=== PATIENT | female | born 1950 | race Caucasian/White ===

== ENCOUNTER → 2019-06-04 09:05 | Outpatient (BNVA) | payer MEDICARE, OTHER, SELFPAY | PROVIDERS: Family Provider Family Medicine; PCP Family Medicine; Visit Provider Specialist | DX: R52 Pain, unspecified (principal); G52.1 Disorders of glossopharyngeal nerve; G40.309 Generalized idiopathic epilepsy and epileptic syndromes, not intractable, without status epilepticus; M16.0 Bilateral primary osteoarthritis of hip | CPT/HCPCS: 99213 ==

== ENCOUNTER → 2020-06-04 08:49 | Outpatient (BNVA) | payer MEDICARE, SELFPAY | PROVIDERS: Family Provider Family Medicine; PCP Family Medicine; Visit Provider Specialist | DX: G52.1 Disorders of glossopharyngeal nerve (principal); G40.309 Generalized idiopathic epilepsy and epileptic syndromes, not intractable, without status epilepticus | CPT/HCPCS: 99213 ==

== ENCOUNTER 2020-07-09 15:24 | Outpatient (CLI) | payer MEDICARE, SELFPAY ==
--- NOTE | 2020-07-09 15:40 | XR_ITS ---
WS: [id number] Right leg including the tibia and fibula, AP and lateral views, 07/09/2020 Clinical Data: FALL, PAIN RIGHT LOWER LEG Comparison: None. Findings: No fractures or dislocations are seen. The tibia and fibula are intact. The soft tissues are normal. The visualized right ankle and right knee show no significant abnormalities. XR/XR tibia fibula RT 2V [id number] Impression: Negative for right leg fracture.
== END 2020-07-09 15:25 | disposition home or self-care (01) ==
PROVIDERS: PCP Family Medicine; Visit Provider Nurse Practitioner Family
DX: M79.661 Pain in right lower leg (principal); W19.XXXA Unspecified fall, initial encounter
CPT/HCPCS: 73590

== ENCOUNTER 2020-07-18 07:59 | Outpatient (CLI) | payer MEDICARE, SELFPAY ==
--- NOTE | 2020-07-18 08:06 | MM_ITS ---
WS: [id number] Bilateral screening digital mammogram, 07/18/2020 Clinical Data: SCREENING Comparison: 03/14/2019, 03/08/2018, 01/31/2017, 05/17/2014, 05/15/2013, 09/03/2008. Findings: The breast parenchymal pattern shows fibroglandular tissue No spiculated masses or clustered calcific ations are seen. There are no secondary signs of carcinoma. There is a mole marker on the left breast . There are lymph nodes in both axilla. MM/[place] [id number] Impression: 1. Negative bilateral mammogram unchanged. 2. Recommend annual screening mammograms. BIRADS: 1-Negative FOLLOW UP: 1 Year Follow-up The CAD cargo checker was used.
== END 2020-07-18 08:00 | disposition home or self-care (01) ==
LOC: RADSHAW 08:01
PROVIDERS: PCP Family Medicine; Visit Provider Family Medicine
DX: Z12.31 Encounter for screening mammogram for malignant neoplasm of breast (principal)
CPT/HCPCS: 77067

== ENCOUNTER 2020-12-09 13:36 | Emergency (ER) | payer MEDICARE, SELFPAY ==
[2020-12-09 14:01] VITALS: BP 183/94; PULSE 80; RESP 19; TEMP 37.1; O2SAT 97
--- NOTE | 2020-12-09 16:03 | W.ED.FALL ---
Documented by User: Alba Lopez 12/09/20 16:58 HPI - Fall General: Chief Complaint: Fall Stated Complaint: Fall, Neck pain Time Seen by Provider: 12/09/20 15:52 History of Present Illness: HPI Narrative: pt fell 5 days ago, stiff neck MD complaint: fall Fall from: standing Loss of consciousness: None Associated symptoms-after fall: Reports headache(s) and neck pain Review of Systems General: Reports: 10 or more systems reviewed and unremarkable except in HPI and below Eyes: Denies: change in vision Musc: Reports: neck pain Neuro: Reports: headache(s) PFSH ED PFSH: Family History Mother Cancer Social History Smoking and tobacco status: never smoked Physical Exam Const: COMMON NORMALS: no acute distress, patient oriented x3, no limitations and alert GENERAL APPEARANCE: cooperative and comfortable ORIENTATION/CONSCIOUSNESS: Yes awake, Yes oriented to person, Yes oriented to place and Yes oriented to time HENMT: COMMON NORMALS: normocephalic, atraumatic, external ears normal, EAC's normal, TM's normal bilaterally and Normal external nose present HEAD & SCALP: normal to inspection, normocephalic and atraumatic FACE & SINUS: normal facial exam, sinuses nontender and face symmetric NOSE: Normal external nose present, Normal nares present and No nasal discharge present EXTERNAL EAR: Yes external ears normal EXTERNAL AUDITORY CANAL: EAC's normal TYMPANIC MEMBRANE: TM's normal bilaterally MOUTH: Normal oral and palatal mucosa present, lip normal and tongue normal THROAT: posterior oropharynx normal, tonsils normal and uvula midline Eye: COMMON NORMALS: Equal, round and reactive pupils present, EOMs intact bilaterally and conjunctivae normal GENERAL EYE: appearance normal, both eyes and all related structures and normal light reflex EYELID: eyelids normal CONJUNCTIVA: Yes conjunctivae normal PUPIL: Yes Equal, round and reactive pupils present EOM: Yes EOM abnormal DIRECT OPHTHALMOSCOPY: Yes normal light reflex Neck/C-Spine: COMMON NORMALS: full ROM, no lymphadenopathy, supple, no meningeal signs, no JVD and Thyroid normal GENERAL: Yes normal visual inspection THYROID: Thyroid normal CERVICAL SPINE: Yes normal cervical lordosis and Yes cervical ROM abnormal rotation to the left decreased Lymph: LYMPHATIC: no lymphadenopathy noted Chest: COMMONS NORMALS: normal inspection of the chest and normal palpation of entire chest wall Resp: COMMON NORMALS: normal respiratory effort, No retractions and clear to auscultation bilaterally AUSCULTATION: clear to auscultation bilaterally Cardio: COMMON NORMALS: no JVD, regular rate, regular rhythm, S1 normal heart sound present, S2 normal heart sound present, No gallops present (Cardio), No clicks present (Cardio), No murmurs present (Cardio), No rub (Cardio) and Peripheral pulses 2+ throughout RATE: regular rate RHYTHM: regular rhythm HEART SOUNDS: S1 normal heart sound present and S2 normal heart sound present PERIPHERAL PULSES: Peripheral pulses 2+ throughout GI: COMMON NORMALS: Normal to inspection, nondistended, normoactive bowel sounds present, Soft to palpation, non-tender and no masses PALPATION: Yes Soft to palpation : COMMON NORMALS: Yes no CVA tenderness and Yes normal external appearance BLADDER/KIDNEY EXAM: Yes no CVA tenderness Back/Pelvis: COMMON NORMALS: no CVA tenderness, thoracic and lumbar spine normal to inspection, no thoracic nor lumbar tenderness and thoraco-lumbar ROM normal Extremity: COMMON NORMALS: normal to inspection, full ROM, capillary refill normal, no joint enlargement, no clubbing, cyanosis or edema, no calf tenderness and no pedal edema GENERAL: Yes normal exam except as noted Neuro: COMMON NORMALS: patient oriented x3, moves all extremities, no focal motor deficits, no sensory deficits noted and gait normal SENSORIUM/ORIENTATION: Yes alert, Yes oriented to person, Yes oriented to place and Yes oriented to time MENINGEAL SIGNS: Yes no meningeal signs Psych: COMMON NORMALS: mental status grossly normal, Normal thought process present, cooperative, normal affect, speech normal and activity/motor behavior normal SPEECH: Yes normal speech THOUGHT PROCESS: Normal thought process present Skin: COMMON NORMALS: no rashes or lesions noted, no wounds and turgor normal GENERAL SKIN EXAM: no rashes or lesions noted and turgor normal Course ED course: Pt presents to ER with complaints of neck pain after tripping over her chickens last . CT head and neck ordered to rule out any acute findings. Muscle relaxer and IM toradol administered. Awaiting results to imaging. Vital Signs: Vital signs: Vital Signs Temperature 98.7 F 12/09/20 18:07 Pulse Rate 69 12/09/20 18:07 Respiratory Rate 16 12/09/20 18:07 Blood Pressure 175/75 12/09/20 18:07 Pulse Oximetry 95 12/09/20 18:07 Discharge Plan Discharge Patient Disposition: Home Clinical Impression: Cervical muscle strain Qualifiers: Encounter type: initial encounter Qualified Code(s): S16.1XXA - Strain of muscle, fascia and tendon at neck level, initial encounter Condition: Stable Prescriptions: New cyclobenzaprine 5 mg tablet 5 mg PO BID PRN (Reason: muscle spasm) Qty: 15 RF: 0 No Action alprazolam 0.25 mg tablet 0.125 mg PO TID RF: 0 omeprazole 40 mg capsule,delayed release(DR/EC) 40 mg PO DAILY RF: 0 fluticasone furoate 50 mcg/actuation blister with device INHALATION RF: 0 cyanocobalamin (vitamin B-12) 1,000 mcg capsule 1,000 mcg PO DAILY RF: 0 (DME) DME: [facility] See Rx Instructions .ROUTE .MEDSUPPLY Qty: 1 RF: 0 ascorbate calcium (vitamin C) 500 mg tablet 500 mg PO DAILY RF: 0 pyridoxine (vitamin B6) 50 mg tablet 25 mg PO DAILY RF: 0 lamotrigine [Lamictal] 150 mg tablet 150 mg PO BID 90 Days Qty: 180 RF: 2 Discharge Orders: Discharge ED (Routine); Ordered 12/09/20 Ordered By: Wallace Javier Referrals: Angelica Gonsales MD [Primary Care Provider] - Discharge Diet: Regular Discharge Activity: Increase activity as tolerated Patient Instructions: Cervical Spine Strain (ED), Muscle Strain (ED) Activity Restrictions/Additional Instructions: Follow-up with medical provider as directed in 5 to 7 days for reevaluation. Take medications as prescribed. Apply cold pack on neck and stretch neck muscles out daily. Return to the ER or your medical provider if condition worsens. Please read and understand discharge instructions. Thank you for choosing [facility] for your healthcare needs today. Please realize this is an emergency room and that we are providing you with a medical screening exam and this may not be complete and all inclusive of all the testing and or work up that you may need to determine your ailment or severity of your illness. It is very important that you follow up as instructed or that you return to the Emergency Department should you have concerns or if your condition changes or worsens in any way. Sign Out Sign Out Data: Patient Sign Out occurred on 12/09/20 at 17:17. Patient's care was discussed, and care was transferred from to DUTCH Mitchell. Coding Level of Care Code ED Mirror Silverer for Chg Fwd Exam Comprehensive Documented by User: DUTCH Mitchell 12/10/20 00:48 HPI - Fall General: Chief Complaint: Fall Stated Complaint: Fall, Neck pain Time Seen by Provider: 12/09/20 15:52 PFSH ED PFSH: Family History Mother Cancer Social History Smoking and tobacco status: never smoked Course Vital Signs: Vital signs: Vital Signs Temperature 98.7 F 12/09/20 18:07 Pulse Rate 69 12/09/20 18:07 Respiratory Rate 16 12/09/20 18:07 Blood Pressure 175/75 12/09/20 18:07 Pulse Oximetry 95 12/09/20 18:07 MDM - Fall MDM Narrative: Medical decision making narrative: Elen Queen nurse practitioner performed the initial history physical exam and ordered imaging. When I took over patient care we were waiting on CT image results. pt presents to ER with complaints of neck pain after tripping over her chickens last . CT head and neck ordered to rule out any acute findings. Muscle relaxer and IM toradol administered. CT of head and CT of cervical spine showed no acute findings or fractures. Patient diagnosed with cervical muscle strain and discharged home with a prescription for muscle relaxers to help with symptoms. She is told to follow-up with her PCP in 7 to 10 days reevaluation. Return to ED precautions given. Patient understood and agree with plan. Imaging Data^: Other CT: Attestation: I personally reviewed and interpreted this imaging study as follows: Radiologist's impression: [address] [address] [address] Scan Report Signed Patient: Savannah Jung Unit #: [id number] : 1950 Age/Sex: 70 / F ADM Date: 12/09/20 Loc: ER Room/Bed: Attending Dr: Ordering Provider/Ordering MD: Alba Lopez NP Date of Service: 12/09/20 Procedure(s): CT cervical spin wo con* [id number] Accession Number(s): [id number] Report Number: [id number] PROCEDURE INFORMATION: Exam: CT Cervical Spine Without Contrast Exam date and time: 12/09/2020 4:04 PM Age: 70 years old Clinical indication: Injury or trauma; Fall; Blunt trauma; Prior surgery; Additional info: Fall on . TECHNIQUE: Imaging protocol: Computed tomography images of the cervical spine without contrast. Radiation optimization: All CT scans at this facility use at least one of these dose optimization techniques: automated exposure control; mA and/or kV adjustment per patient size (includes targeted exams where dose is matched to clinical indication); or iterative reconstruction. COMPARISON: CT neck w con* [id number] 07/26/2014 3:55 PM RADIATION DOSE METRICS: Total DLP (mGy-cm): 776.7 FINDINGS: Vertebrae: No acute cervical spine fractures. No malalignment. C4 through C7 ACDF surgical changes without complication.The cervical spine demonstrates moderate degenerative changes at multiple levels. Soft tissues: Unremarkable. Lungs: Lung apices are normal. CT/CT cervical spin wo con* [id number] IMPRESSION: Negative for acute cervical spine injury. Radiation Dose CTDIVOL = (mGy): DLP = 776.7 (mGy-cm) Dictated By: Luis E Arias Signed By: Luis E Arias Signed Date/Time: 12/09/201654 DD/ 52 CT Head: Attestation: I personally reviewed and interpreted this imaging study as follows: Radiologist's impression: [address] [place] [address] CT Scan Report Signed Patient: Savannah Jung Unit #: [id number] : 1950 Age/Sex: 70 / F ADM Date: 12/09/20 Loc: ER Room/Bed: Attending Dr: Ordering Provider/Ordering MD: Alba Lopez NP Date of Service: 12/09/20 Procedure(s): CT head wo con* [id number] Accession Number(s): [id number] Report Number: [id number] PROCEDURE INFORMATION: Exam: CT Head Without Contrast Exam date and time: 12/09/2020 4:04 PM Age: 70 years old Clinical indication: Injury or trauma; Fall; Blunt trauma (contusions or hematomas); Without loss of consciousness; Additional info: Fall on . Near syncope post fall. MERLOS TECHNIQUE: Imaging protocol: Computed tomography of the head without contrast. Radiation optimization: All CT scans at this facility use at least one of these dose optimization techniques: automated exposure control; mA and/or kV adjustment per patient size (includes targeted exams where dose is matched to clinical indication); or iterative reconstruction. COMPARISON: MRI Head w/wo* [id number] 12/16/2014 9:39 AM RADIATION DOSE METRICS: Total DLP (mGy-cm): 846.82 FINDINGS: Brain: Normal. No hemorrhage. Unremarkable white matter. No mass effect. Cerebral ventricles: No ventriculomegaly. Paranasal sinuses: Visualized sinuses are unremarkable. No fluid levels. Mastoid air cells: Visualized mastoid air cells are well aerated. Bones/joints: Unremarkable. No acute fracture. Soft tissues: Unremarkable. CT/CT head wo con* [id number] IMPRESSION: No acute intracranial abnormality. Radiation Dose CTDIVOL = (mGy): DLP = 846.82 (mGy-cm) Dictated By: Luis E Arias Signed By: Luis E Arias Signed Date/Time: 12/09/201652 DD/ 51 Discharge Plan Discharge Patient Disposition: Home Clinical Impression: Cervical muscle strain Qualifiers: Encounter type: initial encounter Qualified Code(s): S16.1XXA - Strain of muscle, fascia and tendon at neck level, initial encounter Condition: Stable Prescriptions: New cyclobenzaprine 5 mg tablet 5 mg PO BID PRN (Reason: muscle spasm) Qty: 15 RF: 0 No Action alprazolam 0.25 mg tablet 0.125 mg PO TID RF: 0 omeprazole 40 mg capsule,delayed release(DR/EC) 40 mg PO DAILY RF: 0 fluticasone furoate 50 mcg/actuation blister with device INHALATION RF: 0 cyanocobalamin (vitamin B-12) 1,000 mcg capsule 1,000 mcg PO DAILY RF: 0 (DME) DME: [facility] See Rx Instructions .ROUTE .MEDSUPPLY Qty: 1 RF: 0 ascorbate calcium (vitamin C) 500 mg tablet 500 mg PO DAILY RF: 0 pyridoxine (vitamin B6) 50 mg tablet 25 mg PO DAILY RF: 0 lamotrigine [Lamictal] 150 mg tablet 150 mg PO BID 90 Days Qty: 180 RF: 2 Discharge Orders: Discharge ED (Routine); Ordered 12/09/20 Ordered By: Wallace Javier Referrals: Angelica Gonsales MD [Primary Care Provider] - Discharge Diet: Regular Discharge Activity: Increase activity as tolerated Patient Instructions: Cervical Spine Strain (ED), Muscle Strain (ED) Activity Restrictions/Additional Instructions: Follow-up with medical provider as directed in 5 to 7 days for reevaluation. Take medications as prescribed. Apply cold pack on neck and stretch neck muscles out daily. Return to the ER or your medical provider if condition worsens. Please read and understand discharge instructions. Thank you for choosing [facility] for your healthcare needs today. Please realize this is an emergency room and that we are providing you with a medical screening exam and this may not be complete and all inclusive of all the testing and or work up that you may need to determine your ailment or severity of your illness. It is very important that you follow up as instructed or that you return to the Emergency Department should you have concerns or if your condition changes or worsens in any way. Sign Out Sign Out Data: Patient Sign Out occurred on 12/09/20 at 17:17. Patient's care was discussed, and care was transferred from to DUTCH Mitchell. Coding Level of Care Code ED Mirror Silverer for Mireya Fwd Exam Comprehensive
[2020-12-09 16:18] VITALS: BP 175/75; PULSE 69; RESP 16; O2SAT 95
[2020-12-09] MEDS: orphenadrine 30 mg/mL Inj 2 mL 60 MG IM (17:17)
[2020-12-09] MEDS: ketorolac 30 mg/mL INJ IM (17:17)
[2020-12-09 18:07] VITALS: BP 175/75; PULSE 69; RESP 16; TEMP 37.1; O2SAT 95
== END 2020-12-09 18:10 | disposition home or self-care (01) ==
PROVIDERS: Emergency Provider Physician Assistant; PCP Family Medicine
DX: S16.1XXA Strain of muscle, fascia and tendon at neck level, initial encounter (principal); W01.0XXA Fall on same level from slipping, tripping and stumbling without subsequent striking against object, initial encounter
CPT/HCPCS: 70450; 72125; 96372; 99283; J1885; J2360

== ENCOUNTER 2021-01-31 21:06 | Emergency (ER) | payer MEDICARE, SELFPAY ==
--- NOTE | 2021-01-31 21:14 | W.ED.SKABFB ---
HPI - Skin/Abscess/Foreign Bdy General: Chief complaint: Animal Bite Stated complaint: Spider Bite Time Seen by Provider: 01/31/21 21:14 History of Present Illness: HPI narrative: 70-year-old female comes in today with complaints of left thumb pain. Patient believes she had been bitten by a spider earlier today around 2:00 in afternoon. Patient comes in tonight due to the pain of the thumb and some nausea due to the pain. Patient appears well. Patient appears no acute distress. Review of Systems General: Reports: 10 or more systems reviewed and unremarkable except in HPI and below Skin/Breast: Reports: other (Probable insect bite left thumb) PFS ED PFSH: Family History Mother Cancer Social History Smoking and tobacco status: never smoked Physical Exam Const: COMMON NORMALS: no acute distress and patient oriented x3 GENERAL APPEARANCE: cooperative HENMT: COMMON NORMALS: normocephalic and Normal external nose present HEAD & SCALP: normal to inspection and normocephalic NOSE: Normal external nose present Eye: GENERAL EYE: appearance normal, both eyes and all related structures Neck/C-Spine: COMMON NORMALS: full ROM Chest: COMMONS NORMALS: normal inspection of the chest Resp: COMMON NORMALS: normal respiratory effort EFFORT & INSPECTION: Yes able to speak in complete sentences Cardio: COMMON NORMALS: regular rate and regular rhythm RATE: regular rate RHYTHM: regular rhythm GI: COMMON NORMALS: non-tender Extremity: COMMON NORMALS: normal to inspection Neuro: COMMON NORMALS: patient oriented x3 and moves all extremities Psych: COMMON NORMALS: mental status grossly normal and cooperative Skin: NARRATIVE SKIN EXAM: 4 mm area of ecchymosis noted to the ulnar side of the left thumb at the DIP joint. Patient has good range of motion of the thumb. Prompt capillary refill is noted. Small amount of swelling and redness is noted to the joint of the thumb. Course Vital Signs: Vital signs: Vital Signs Temperature 98.6 F 01/31/21 21:15 Pulse Rate 84 01/31/21 21:15 Respiratory Rate 18 01/31/21 21:15 Blood Pressure 174/65 01/31/21 21:15 Pulse Oximetry 95 01/31/21 21:15 MDM - Skin/Abscess/Foreign Bdy MDM Narrative: Medical decision making narrative: Patient comes in for probable insect bite to the left thumb. On exam patient has a lesion with some surrounding ecchymosis approximately 4 mm to the left ulnar side of the thumb at the DIP joint. Patient also has some mild redness approximately 1 cm surrounding the lesion. Patient has good range of motion of the thumb and prompt capillary refill. Differential diagnosis includes local reaction to insect bite, arthritis, cellulitis. No sign of significant inflammation suggesting arthritis or cellulitis at this time. Suspect patient probably was bit by a spider and is having a local reaction to the wound. We will go ahead and give her a dose of diphenhydramine IM and 10 mg of dexamethasone. Patient was also given 1 dose of hydrocodone and a Zofran to help with her pain and nausea. Patient will be continued with triamcinolone cream to help with the reaction from the venom of the spider. Patient was also given some hydrocodone for breakthrough pain but was encouraged to use Tylenol and ibuprofen otherwise. Patient denied any history of diabetes and I recommended follow-up in 3 days with primary care for recheck. Patient reported understanding and agreed to plan. Discharge Plan Discharge Patient Disposition: Home Clinical Impression: Insect bite Qualifiers: Encounter type: initial encounter Site of insect bite: hand Laterality: left Qualified Code(s): S60.562A - Insect bite (nonvenomous) of left hand, initial encounter Condition: Stable Prescriptions: New triamcinolone acetonide 0.1 % cream 1 applic topical BID Qty: 30 RF: 0 hydrocodone-acetaminophen 5-325 mg tablet 1 tab PO Q8H PRN (Reason: pain (scale score 7-10)) Qty: 7 RF: 0 No Action alprazolam 0.25 mg tablet 0.125 mg PO TID RF: 0 omeprazole 40 mg capsule,delayed release(DR/EC) 40 mg PO DAILY RF: 0 fluticasone furoate 50 mcg/actuation blister with device INHALATION RF: 0 cyanocobalamin (vitamin B-12) 1,000 mcg capsule 1,000 mcg PO DAILY RF: 0 (DME) DME: [facility] See Rx Instructions .ROUTE .MEDSUPPLY Qty: 1 RF: 0 ascorbate calcium (vitamin C) 500 mg tablet 500 mg PO DAILY RF: 0 pyridoxine (vitamin B6) 50 mg tablet 25 mg PO DAILY RF: 0 lamotrigine 150 mg tablet See Rx Instructions .ROUTE .COMPLEX Qty: 60 RF: 11 cyclobenzaprine 5 mg tablet 5 mg PO BID PRN (Reason: muscle spasm) Qty: 15 RF: 0 Discharge Orders: Discharge ED (Routine); Ordered 01/31/21 Ordered By: Bran Tang Referrals: Angelica Gonsales MD [Primary Care Provider] - Discharge Diet: Usual diet Discharge Activity: Increase activity as tolerated Patient Instructions: Insect Bite or Sting (ED), Opioid Safety Activity Restrictions/Additional Instructions: Use steroid cream to the wound twice a day for the next 5 to 7 days. Use Benadryl as needed for itching. Use acetaminophen or ibuprofen to control pain. Use hydrocodone for severe pain. Follow-up with primary care in 3 days for recheck. Return to the ER for new concerns or worsening symptoms. Coding Level of Care Code ED Manufacturing Plant Manager for Mireya Alves
[2021-01-31 21:15] VITALS: BP 174/65; PULSE 84; RESP 18; TEMP 37; O2SAT 95
[2021-01-31] MEDS: ondansetron 4 MG Tablet PO (22:02)
[2021-01-31] MEDS: HYDROcodone-acetaminophen 5-325 mg Tablet 1 TAB PO (22:02)
[2021-01-31] MEDS: diphenhydrAMINE 50 mg/mL SDV 1mL 25 MG IM (22:03)
[2021-01-31] MEDS: dexamethasone 10 mg/mL INJ IM (22:04)
[2021-01-31 22:07] VITALS: BP 158/70; PULSE 65; RESP 17; O2SAT 96
== END 2021-01-31 22:09 | disposition home or self-care (01) ==
PROVIDERS: Emergency Provider Nurse Practitioner Family; PCP Family Medicine
DX: S60.362A Insect bite (nonvenomous) of left thumb, initial encounter (principal); W57.XXXA Bitten or stung by nonvenomous insect and other nonvenomous arthropods, initial encounter
CPT/HCPCS: 96372; 99283; J1100; J1200; Q0162

== ENCOUNTER 2021-05-05 12:18 | Outpatient (CLI) | payer MEDICARE, SELFPAY ==
--- NOTE | 2021-05-05 12:29 | XR_ITS ---
WS: [id number] Thoracic spine, AP and lateral views, 05/05/2021 Clinical Data: DORSALGIA Comparison: None. Findings: No compression fractures are seen. The disc heights are normal. There is osteoarthritic spurring of all the thoracic vertebral bodies. The paravertebral regions are unremarkable. There is an anterior cervical disc fusion. XR/XR thoracic spine 2V [id number] Impression: Moderate osteoarthritis of the thoracic vertebral bodies.
== END 2021-05-05 12:19 | disposition home or self-care (01) ==
LOC: RAD 12:23
PROVIDERS: PCP Family Medicine; Visit Provider Family Medicine
DX: M47.814 Spondylosis without myelopathy or radiculopathy, thoracic region (principal)
CPT/HCPCS: 72070

== ENCOUNTER → 2021-06-03 08:54 | Outpatient (BNVA) | payer MEDICARE, SELFPAY | PROVIDERS: PCP Family Medicine; Visit Provider Specialist | DX: G40.309 Generalized idiopathic epilepsy and epileptic syndromes, not intractable, without status epilepticus (principal); G52.1 Disorders of glossopharyngeal nerve | CPT/HCPCS: 99213; 99214 ==

== ENCOUNTER 2021-09-09 12:45 | Outpatient (CLI) | payer MEDICARE, SELFPAY ==
--- NOTE | 2021-09-09 13:14 | MM_ITS ---
WS: [id number] BILATERAL 3D TOMOSYNTHESIS DIGITAL SCREENING MAMMOGRAPHY WITH CAD CLINICAL INFORMATION: SCREENING HISTORY: Screening mammogram. No current complaints. COMPARISON: July 18, 2020 TECHNIQUE: Bilateral CC and MLO views. FINDINGS: Scattered fibroglandular densities bilaterally. Punctate and lucent centered calcifications. Vascular calcification. No suspicious focal mass, asymmetry, calcifications, or architectural distortion. No evidence of malignancy. MM/[place] [id number] IMPRESSION: BI-RADS: 2-Benign FOLLOW UP: 1 Year Follow-up Recommend return to annual screening mammography.
== END 2021-09-09 12:46 | disposition home or self-care (01) ==
LOC: RAD 12:47
PROVIDERS: PCP Family Medicine; Visit Provider Family Medicine
DX: Z12.31 Encounter for screening mammogram for malignant neoplasm of breast (principal)
CPT/HCPCS: 77063; 77067

== ENCOUNTER 2022-03-15 14:11 | Outpatient (CLI) | payer MEDICARE, SELFPAY ==
--- NOTE | 2022-03-15 14:34 | XR_ITS ---
WS: [id number] Exam: XR shoulder LT min 2V* [id number] Date/Time of Exam: 03/15/2022 2:39 PM Reason For Exam: L SHOULDER PAIN/?CLAVICLE FX/FALL AT HOME No fracture or dislocation. Degenerative change of the glenohumeral joint and AC joint. Sclerosis and subcortical cyst formation in the greater tuberosity of the humerus. Normal soft tissues. Fusion garrett dware partially visualized in the lower C-spine. XR/XR shoulder LT min 2V* [id number] IMPRESSION: 1. Moderate degenerative changes of the left shoulder. No fracture or dislocati on.
== END 2022-03-15 14:12 | disposition home or self-care (01) ==
PROVIDERS: PCP Family Medicine; Visit Provider Family Medicine
DX: M25.512 Pain in left shoulder (principal); M19.012 Primary osteoarthritis, left shoulder
CPT/HCPCS: 73030

== ENCOUNTER → 2022-07-09 14:04 | Outpatient (BNVA) | payer MEDICARE, SELFPAY | PROVIDERS: PCP Family Medicine; Visit Provider Specialist | DX: G40.309 Generalized idiopathic epilepsy and epileptic syndromes, not intractable, without status epilepticus (principal); M54.9 Dorsalgia, unspecified; G52.1 Disorders of glossopharyngeal nerve | CPT/HCPCS: 99214 ==

== ENCOUNTER 2022-08-11 09:44 | Outpatient (CLI) | payer MEDICARE, SELFPAY ==
--- NOTE | 2022-08-11 10:06 | MR_ITS ---
WS: [id number] MRI CERVICAL SPINE NONCONTRAST HISTORY: NECK PAIN COMPARISON: Radiographs 07/14/2022. Technique: Multiplanar, multisequence noncontrast imaging of the cervical spine. Anterior cervical fusion extends from C4 through C7. Interbody spacers with fusion across the disc sp acers at C4-5, C5-6 and C6-7. Signal within the cervical cord is normal. Visualized posterior fossa is unremarkable. Craniocervical junction, C1 and C2 relationship, odontoid process and soft tissues are normal. C2-C3: Very small central disc protrusion. No stenosis. C3-C4: Moderate osteophytic ridging encroaching upon the ventral thecal sac and narrowing the foramin a. There is also ligamentum flavum and facet arthritis contributing to the moderate to severe stenosi s. Small central disc protrusion. The above factors are causing at least moderate to severe central a nd RIGHT foraminal stenosis. Moderate LEFT foraminal stenosis. C4-C5: Very mild bilateral foraminal narrowing. C5-C6: Foramina difficult to visualize. There is mild to moderate RIGHT foraminal stenosis. C6-C7: Mild bilateral foraminal narrowing. No central stenosis. C7-T1: Central disc protrusion with mild osteophytic ridging. Disc contacts the ventral cervical cord . There is moderate central and bilateral foraminal stenosis. Additional mild degenerative disc disease at T2-3 and T3-4. MR/MR cervical spin wo con* [id number] IMPRESSION: 1. Status post anterior cervical fusion with interbody spacers from C4 through C7. 2. Moderate to severe central and RIGHT foraminal stenosis at C3-4 with modera te LEFT foraminal stenosis. Stenosis is due to combination of osteophytic ridgi ng, facet and disc disease. Predominantly osseous stenosis. 3. Very small central disc protrusion at C2-3. 4. Multiple moderate RIGHT foraminal stenosis at C5-6. 5. Moderate central and bilateral foraminal stenosis at C7-T1. There is a smal l central disc protrusion with osteophytic ridging.
== END 2022-08-11 09:45 | disposition home or self-care (01) ==
PROVIDERS: PCP Family Medicine; Visit Provider Family Medicine
DX: M48.02 Spinal stenosis, cervical region (principal); M50.21 Other cervical disc displacement, high cervical region; Z98.1 Arthrodesis status
CPT/HCPCS: 72141

== ENCOUNTER → 2022-09-03 09:45 | Outpatient (BNVA) | payer MEDICARE, SELFPAY | PROVIDERS: PCP Family Medicine; Visit Provider Internal Medicine | DX: M25.50 Pain in unspecified joint (principal); M54.2 Cervicalgia; M54.9 Dorsalgia, unspecified; Z11.1 Encounter for screening for respiratory tuberculosis; Z11.59 Encounter for screening for other viral diseases | CPT/HCPCS: 99204 ==

== ENCOUNTER 2022-09-03 12:46 | Outpatient (CLI) | payer MEDICARE, SELFPAY ==
--- NOTE | 2022-09-03 | XR_ITS ---
WS: [id number] XR hand RT 2V [id number] REASON FOR EXAM: PAIN IN UNSPECIFIED JOINT FINDINGS: No fracture or focal bone lesion. Moderate narrowing of the joint space with moderate subchondral sclerosis and osteophytosis in the DI P joints of the thumb and fingers. Similar but milder arthropathic changes in the PIP joints. Similar more significant arthropathic change in the MP joint of the thumb. Similar but more severe ar thropathy in the carpal metacarpal joint with significant fragmentation of the carpal bone and sublux ation of the metacarpal. Moderate narrowing of the joint space with moderate subchondral sclerosis in the MP joints of the sec ond through the fifth fingers. 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
--- NOTE | 2022-09-03 | XR_ITS ---
WS: [id number] XR hand LT 2V [id number] REASON FOR EXAM: PAIN IN UNSPECIFIED JOINT FINDINGS: No fracture or focal bone lesion. Moderate joint space narrowing with moderate subchondral sclerosis and osteophytosis of the DIP joint s. Similar, somewhat milder, arthropathic change in the PIP joints of the second through the fifth finge rs. Similar but more severe arthropathic change in the metacarpal phalangeal joint of the thumb and the c arpal metacarpal joint of the thumb with fragmentation of the carpal bone and subluxation of the meta carpal. Moderate narrowing of the MCP joints of the second through the fifth fingers with moderate subchondra l sclerosis. XR/XR hand LT 2V [id number] IMPRESSION: Osteoarthritis of the left hand as above.
== END 2022-09-03 12:47 | disposition home or self-care (01) ==
LOC: RADOUTREAD 12:47
PROVIDERS: PCP Family Medicine; Visit Provider Internal Medicine
DX: M79.642 Pain in left hand (principal); M79.641 Pain in right hand

== ENCOUNTER 2022-09-29 11:36 | Outpatient (CLI) | payer MEDICARE, SELFPAY ==
--- NOTE | 2022-09-29 11:46 | MM_ITS ---
WS: [id number] VIEWS: MLO and CC views both breasts. 3D digital tomosynthesis is also included in this exam. Comparison made with prior exam of 05/17/2014, 01/31/2017, 03/08/2018, 03/14/2019, 07/18/2020, 09/09/2021. . Findings: There was no sign of mass, architectural distortion or suspicious calcification in either breast. Th ere are areas of scattered fibroglandular density MM/[place] [id number] Impression: BI-RADS: 2 benign finding FOLLOW-UP: 1 Year Follow-up This mammogram was also analyzed by the Computer Aided Detection System R2 Imag e Knockout Man.
== END 2022-09-29 11:37 | disposition home or self-care (01) ==
LOC: RAD 11:42
PROVIDERS: PCP Family Medicine; Visit Provider Family Medicine
DX: Z12.11 Encounter for screening for malignant neoplasm of colon (principal)
CPT/HCPCS: 77063; 77067

== ENCOUNTER → 2022-11-12 11:07 | Outpatient (BNVA) | payer MEDICARE, SELFPAY | PROVIDERS: PCP Family Medicine; Visit Provider Internal Medicine | DX: M54.2 Cervicalgia; M25.50 Pain in unspecified joint | CPT/HCPCS: 99213 ==

== ENCOUNTER → 2022-12-27 09:00 | Outpatient (BNVA) | payer MEDICARE, SELFPAY | PROVIDERS: PCP Family Medicine; Referring Provider Internal Medicine; Visit Provider Anesthesiology Pain Medicine | DX: M54.16 Radiculopathy, lumbar region; M54.2 Cervicalgia | CPT/HCPCS: 99205 ==

== ENCOUNTER → 2023-02-09 12:54 | Outpatient (BNVA) | payer MEDICARE, SELFPAY | PROVIDERS: PCP Family Medicine; Visit Provider Nurse Practitioner Family | DX: D48.5 Neoplasm of uncertain behavior of skin (principal); L57.0 Actinic keratosis; L82.1 Other seborrheic keratosis; D22.5 Melanocytic nevi of trunk; L57.8 Other skin changes due to chronic exposure to nonionizing radiation; L81.4 Other melanin hyperpigmentation; L85.3 Xerosis cutis | CPT/HCPCS: 11102; 17000; 99203 ==

== ENCOUNTER → 2023-02-16 10:58 | Outpatient (BNVA) | payer MEDICARE, SELFPAY | PROVIDERS: PCP Family Medicine; Visit Provider Dermatology | DX: L57.8 Other skin changes due to chronic exposure to nonionizing radiation (principal); D48.5 Neoplasm of uncertain behavior of skin; L57.0 Actinic keratosis | CPT/HCPCS: 11102; 17000; 99214 ==

== ENCOUNTER → 2023-02-24 08:24 | Outpatient (BNVA) | payer MEDICARE, SELFPAY | PROVIDERS: PCP Family Medicine; Visit Provider Dermatology | DX: L57.0 Actinic keratosis (principal) | CPT/HCPCS: 96574 ==

== ENCOUNTER → 2023-03-14 09:12 | Outpatient (BNVA) | payer MEDICARE, SELFPAY | PROVIDERS: PCP Family Medicine; Visit Provider Dermatology | DX: C44.329 Squamous cell carcinoma of skin of other parts of face (principal); D37.01 Neoplasm of uncertain behavior of lip | CPT/HCPCS: 14040; 17311; 40490 ==

== ENCOUNTER → 2023-03-28 10:00 | Outpatient (BNVA) | payer MEDICARE, SELFPAY | PROVIDERS: PCP Family Medicine; Visit Provider Dermatology | DX: Z48.02 Encounter for removal of sutures (principal) | CPT/HCPCS: 99212 ==

== ENCOUNTER → 2023-07-05 12:24 | Outpatient (BNVA) | payer MEDICARE, SELFPAY | PROVIDERS: PCP Family Medicine; Visit Provider Specialist | DX: G52.1 Disorders of glossopharyngeal nerve (principal); G40.309 Generalized idiopathic epilepsy and epileptic syndromes, not intractable, without status epilepticus | CPT/HCPCS: 99213 ==

== ENCOUNTER → 2023-07-27 13:36 | Outpatient (BNVA) | payer MEDICARE, SELFPAY | PROVIDERS: PCP Family Medicine; Visit Provider Dermatology | DX: L57.0 Actinic keratosis (principal); L82.0 Inflamed seborrheic keratosis; L57.8 Other skin changes due to chronic exposure to nonionizing radiation; Z85.828 Personal history of other malignant neoplasm of skin | CPT/HCPCS: 17000; 17110; 99213 ==

== ENCOUNTER 2023-10-05 11:09 | Outpatient (CLI) | payer MEDICARE, SELFPAY ==
--- NOTE | 2023-10-05 11:14 | MM_ITS ---
WS: [id number] BILATERAL SCREENING DIGITAL TOMOSYNTHESIS MAMMOGRAM WITH CAD HISTORY: SCREENING COMPARISON: 09/29/2022, 09/09/2021 Bilateral CC and MLO views with tomosynthesis and synthetic mammography submitted. Computer aided det ection analyzed. Breast composition: There are scattered areas of fibroglandular density. No suspicious masses, microc alcifications or architectural distortion. Benign calcifications in each breast. MM/[place] [id number] IMPRESSION: BI-RADS: 2-Benign FOLLOW UP: 1 Year Follow-up
== END 2023-10-05 11:10 | disposition home or self-care (01) ==
LOC: RAD 11:09
PROVIDERS: PCP Family Medicine; Visit Provider Family Medicine
DX: Z12.31 Encounter for screening mammogram for malignant neoplasm of breast (principal); R92.323 Mammographic fibroglandular density, bilateral breasts; R92.1 Mammographic calcification found on diagnostic imaging of breast
CPT/HCPCS: 77063; 77067

== ENCOUNTER → 2023-10-18 09:44 | Outpatient (CLI) | payer MEDICARE, SELFPAY ==
--- NOTE | 2023-10-18 10:07 | CT_ITS ---
WS: [id number] CT HEAD TECHNIQUE: Noncontrast CT of the head obtained from the skullbase to the vertex. CLINICAL INFORMATION: Injury of Head COMPARISON: CT 12/06/2020 DLP: 1055.[address] scans at [facility] use at least one of these dose optimization techniques: automated e xposure control; mA and/or kV adjustment per patient size (includes targeted exams where dose is matc hed to clinical indication); or iterative reconstruction. FINDINGS: No evidence of intracranial hemorrhage or mass effect. Ventricular system and basal cisterns are salter nt. Mild small vessel changes with no significant parenchymal volume loss. No extra-axial fluid colle ctions. No evidence of mass or mass effect. Cavernous carotid calcification. Paranasal sinuses and mastoid air cells are well aerated. .Normal visualized soft tissues. CT/CT head wo con* [id number] IMPRESSION: 1. No evidence of intracranial hemorrhage or mass effect. 2. Cavernous carotid calcification. 3. Mild small vessel changes. No significant parenchymal volume loss. 4. No acute intracranial findings.
== END | disposition home or self-care (01) ==
LOC: RAD 09:51
PROVIDERS: PCP Family Medicine; Visit Provider Family Medicine
DX: S09.90XA Unspecified injury of head, initial encounter (principal); I65.23 Occlusion and stenosis of bilateral carotid arteries
CPT/HCPCS: 70450

== ENCOUNTER → 2024-01-30 13:24 | Outpatient (BNVA) | payer MEDICARE, SELFPAY | PROVIDERS: PCP Family Medicine; Visit Provider Nurse Practitioner Family | DX: D48.5 Neoplasm of uncertain behavior of skin (principal); L57.0 Actinic keratosis; L57.8 Other skin changes due to chronic exposure to nonionizing radiation; L82.1 Other seborrheic keratosis; D22.39 Melanocytic nevi of other parts of face; D22.5 Melanocytic nevi of trunk; Z85.828 Personal history of other malignant neoplasm of skin | CPT/HCPCS: 11102; 17000; 99213 ==

== ENCOUNTER → 2024-02-16 09:46 | Outpatient (BNVA) | payer MEDICARE, SELFPAY | PROVIDERS: PCP Family Medicine; Visit Provider Dermatology | DX: C44.319 Basal cell carcinoma of skin of other parts of face (principal); C44.712 Basal cell carcinoma of skin of right lower limb, including hip | CPT/HCPCS: 14040; 17262; 17311 ==

== ENCOUNTER → 2024-02-27 11:31 | Outpatient (BNVA) | payer MEDICARE, SELFPAY | PROVIDERS: PCP Family Medicine; Visit Provider Dermatology | DX: C44.319 Basal cell carcinoma of skin of other parts of face (principal) | CPT/HCPCS: 99213 ==

== ENCOUNTER 2024-03-27 10:53 | Outpatient (CLI) | payer MEDICARE, SELFPAY ==
--- NOTE | 2024-03-27 10:57 | MRR_ITS ---
PROCEDURE INFORMATION: Exam: MR Left Upper Extremity Joint Without Contrast; Shoulder Exam date and time: 03/27/2024 11:12 AM Age: 73 years old Clinical indication: Patient HX: Acute left shoulder pain with very limited rom-no acute injury TECHNIQUE: Imaging protocol: Magnetic resonance imaging of the left upper extremity without contrast. Exam focused on the shoulder. COMPARISON: CR XR shoulder LT min 2V* [id number] 01/16/2024 2:22 PM FINDINGS: Bones/joints: Moderate arthrosis of the including marginal spurring, capsular hypertrophy and inferior ruptured spur. Glenohumeral joint margins. Fracture. Mild reactive edema and cystic change of the greater tuberosity. Glenoid labrum: No obvious tear. Bursae: [id number]-[id number] subacromial subdeltoid bursitis, with intramuscular extension bursal fluid into the substance of the supraspinatus. Mild glenohumeral effusion. Supraspinatus tendon: Moderate to severe tendinosis of the supraspinatus. Superimposed intrasubstance fraying along the bursal fibers of the myotendinous junction. Superimposed new full-thickness focal tear to 5 x 3 mm (series 8, image 8). Mild muscle belly edema/strain. Infraspinatus tendon: Low to intermediate grade tear of the myotendinous junction of the infraspinatus the articular surface fibers. Subscapularis tendon: Unremarkable. No evidence of tear. Teres minor tendon: Unremarkable. No evidence of tear. Tendon of biceps brachii: Unremarkable. No evidence of tear. Glenohumeral ligaments: Unremarkable. Soft tissues: Unremarkable. MR/MR shoulder LT wo con* [id number] IMPRESSION: 1. Significant subacromial subdeltoid bursitis with extension into the substance of the supraspinatus. Mild glenohumeral effusion. No additional features or clinical history to strongly suggest septic etiology although joint fluid /bursal analysis may be considered for more definitive exclusion of infectious etiology if clinically warranted. 2. Moderate to severe supraspinatus tendinosis . Moderate superimposed bursal surface fraying from the myotendinous junction to the footprint and at least 1 near full-thickness tear noted . 3. Linear slit-like intermediate grade tear of the infraspinatus from the myotendinous junction to the articular surface fibers of the footprint. 4. Moderate to severe AC joint arthrosis.
== END 2024-03-27 10:54 | disposition home or self-care (01) ==
LOC: RAD 10:55
PROVIDERS: PCP Family Medicine; Visit Provider Family Medicine
DX: M19.012 Primary osteoarthritis, left shoulder (principal); M75.52 Bursitis of left shoulder; M75.92 Shoulder lesion, unspecified, left shoulder; S46.012A Strain of muscle(s) and tendon(s) of the rotator cuff of left shoulder, initial encounter
CPT/HCPCS: 73221

== ENCOUNTER → 2024-04-13 11:30 | Outpatient (BNVA) | payer MEDICARE, SELFPAY | PROVIDERS: PCP Family Medicine; Visit Provider Nurse Practitioner | DX: S49.90XA Unspecified injury of shoulder and upper arm, unspecified arm, initial encounter (principal); X58.XXXA Exposure to other specified factors, initial encounter | CPT/HCPCS: 36415; 80053; 81001; 85025; 87086 ==

== ENCOUNTER 2024-05-18 09:28 | Emergency (ER) | payer MEDICARE, SELFPAY ==
[2024-05-18 10:09] VITALS: BP 181/70; PULSE 81; RESP 17; TEMP 36.5; O2SAT 96; BMI 33.7
--- NOTE | 2024-05-18 10:26 | XRR_ITS ---
PROCEDURE INFORMATION: Exam: XR Right Knee Exam date and time: 05/18/2024 11:18 AM Age: 73 years old Clinical indication: Injury or trauma; Fall; Blunt trauma; Knee; Right; Additional info: Fall/pain TECHNIQUE: Imaging protocol: Radiologic exam of the right knee. Views: 3 views. COMPARISON: CR XR tibia fibula RT 2V [id number] 07/09/2020 3:57 PM FINDINGS: Bones/joints: Enthesophyte from the superior right patella. Otherwise, unremarkable. Soft tissues: Normal. XR/XR knee RT 3V* [id number] IMPRESSION: No acute findings.
--- NOTE | 2024-05-18 10:26 | XRR_ITS ---
PROCEDURE INFORMATION: Exam: XR Left Knee Exam date and time: 05/18/2024 11:09 AM Age: 73 years old Clinical indication: Injury or trauma; Fall; Blunt trauma; Knee; Left; Additional info: Fall/pain TECHNIQUE: Imaging protocol: Radiologic exam of the left knee. Views: 3 views. COMPARISON: No relevant prior studies available. 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 Cobprdat-og-sqzey left knee joint effusion. Otherwise, unremarkable. Soft tissues: Otherwise, unremarkable. XR/XR knee LT 3V* [id number] IMPRESSION: 1. Hbppxert-nl-ngshv left knee joint effusion. 2. No other acute findings.
--- NOTE | 2024-05-18 11:17 | ED_ITS ---
HPI - Extremity Injury (Lower) General: Chief Complaint: Extremity Injury, Lower Stated Complaint: fall Time Seen by Provider: 05/18/24 10:54 Source: patient Mode of arrival: wheelchair Limitations: no limitations History of Present Illness: Patient is a very nice 73-year-old female presents to ED today with complaint of bilateral knee pain. Patient states yesterday she accidentally tripped over a w elissa and fell directly onto her bilateral knees. She states she has ambulated following the fall but has significant discomfort involving her left knee. She has no other injuries or complaints at this time. Denies striking her head or LOC. She has no neck or back pain. She does have bilateral anterior knee abrasions. She reports her tetanus is up-to-date. MD complaint: knee injury Onset (ago): day(s) (yesterday) Injury: Bilateral: knee Place: home Severity: moderate Relieving factors: immobilization Exacerbating factors: weight bearing, movement and palpation Context: fall Associated symptoms: Reports no associated symptoms Other symptoms: none Related Data Home Medications Medication Instructions Recorded Confirmed alprazolam 0.25 mg tablet 0.125 mg PO TID 06/04/19 04/13/24 cyanocobalamin (vitamin B-12) 1,000 mcg PO DAILY 06/04/19 04/13/24 1,000 mcg capsule fluticasone furoate 50 inhalation 06/04/19 04/13/24 mcg/actuation blister powder for inhalation omeprazole 40 mg capsule,delayed 40 mg PO DAILY 06/04/19 04/13/24 release ascorbate calcium (vitamin C) 500 500 mg PO DAILY 06/04/20 04/13/24 mg tablet pyridoxine (vitamin B6) 50 mg 25 mg PO DAILY 06/04/20 04/13/24 tablet celecoxib 200 mg capsule (Celebrex) 200 mg PO DAILY 07/09/22 04/13/24 cetirizine 10 mg tablet (All Day 10 mg PO DAILY PRN 07/09/22 04/13/24 Allergy (cetirizine)) gabapentin 300 mg capsule 300 mg PO TID 07/05/23 04/13/24 fluticasone propionate 50 intranasal 04/13/24 04/13/24 mcg/actuation nasal spray,suspension losartan 50 mg tablet mg PO 04/13/24 04/13/24 mupirocin 2 % topical ointment topical 04/13/24 04/13/24 prednisolone acetate 1 % eye drp ophthalmic (eye) 04/13/24 04/13/24 drops,suspension Previous Rx's Medication Instructions Recorded DME: Walker #1 ea 06/04/19 cyclobenzaprine 5 mg tablet 5 mg PO BID PRN muscle spasm #15 12/09/20 tabs triamcinolone acetonide 0.1 % 1 applic topical BID #30 grams 01/31/21 topical cream ketoconazole 1 % shampoo 1 applic topical Q3D #125 mL 11/12/22 topiramate 50 mg tablet 50 mg PO BID pain 30 days #60 tabs 12/27/22 diclofenac sodium 1 % topical gel 4 g topical QID #100 grams 01/04/23 (Voltaren Arthritis Pain) prednisone 5 mg tablet See Rx Instructions PO DAILY #60 01/04/23 tabs lamotrigine 150 mg tablet See Rx Instructions .Route 04/12/23 .COMPLEX #180 tabs nitrofurantoin 100 mg PO Q12H 7 days #14 caps 04/13/24 monohydrate/macrocrystals 100 mg capsule (Macrobid) acetaminophen 300 mg-codeine 30 mg 1 tab PO Q6H PRN pain #14 tabs 05/18/24 tablet Allergies Allergy/AdvReac Type Severity Reaction Status Date / Time gabapentin Allergy Severe rash and Verified 04/13/24 09:43 made her sick azithromycin Allergy Mild ALGY-Rash Verified 04/13/24 09:43 cefdinir [From Omnicef] Allergy Mild rash Verified 04/13/24 09:43 clarithromycin [From Biaxin] Allergy Mild Rash Verified 04/13/24 09:43 carisoprodol Allergy dizziness Verified 04/13/24 09:43 blurred vision hydromorphone [From Dilaudid] Allergy itchiness Verified 04/13/24 09:43 Sulfa (Sulfonamide Allergy Rash Verified 04/13/24 09:43 Antibiotics) Penicillins AdvReac Mild Immune to Verified 04/13/24 09:43 it Review of Systems Eyes: Denies: change in vision, blurry vision, photophobia, eye discharge, floaters or seeing flashes ENMT: Denies: throat pain, odynophagia, ear or mastoid pain, ear discharge, nasal discharge, epistaxis or sinus pain Card: Denies: chest pain, palpitations, lightheadedness, syncope or pre- syncope Resp: Denies: dyspnea or pain on inspiration GI: Denies: abdominal pain : Denies: flank pain or hematuria Musc: Reports: joint pain (bilateral knees) and joint swelling (bilateral knees); Denies: neck pain, back pain or extremity pain Neuro: Denies: headache(s), numbness in extremities, weakness in extremities, sensory changes or dizziness PFSH ED PFSH: Medical History Lumbago Rash Arthralgia Cervicalgia Family History Mother Cancer Social History Smoking and tobacco/nicotine status: never used tobacco/nicotine Physical Exam Const: COMMON NORMALS: no acute distress, average body habitus, patient oriented x3, no limitations, healthy appearing, alert and well nourished GENERAL APPEARANCE: cooperative ORIENTATION/CONSCIOUSNESS: Yes awake, Yes oriented to person, Yes oriented to place and Yes oriented to time HENMT: COMMON NORMALS: normocephalic, atraumatic and TM's normal bilaterally HEAD & SCALP: normal to inspection, normocephalic and atraumatic; no Malone's sign, no hematoma and no raccoon eyes FACE & SINUS: normal facial exam TYMPANIC MEMBRANE: TM's normal bilaterally MOUTH: other (no intraoral injuries noted) Eye: COMMON NORMALS: Equal, round and reactive pupils present and EOMs intact bilaterally GENERAL EYE: appearance normal, both eyes and all related structures and normal light reflex PUPIL: Yes Equal, round and reactive pupils present DIRECT OPHTHALMOSCOPY: Yes normal light reflex Neck/C-Spine: COMMON NORMALS: full ROM GENERAL: Yes normal visual inspection CERVICAL SPINE: Yes cervical ROM normal, No pain with cervical ROM, No Cervical spine tenderness, No step off deformity and No Paracervical muscle tenderness Chest: COMMONS NORMALS: normal inspection of the chest and normal palpation of entire chest wall Resp: COMMON NORMALS: normal respiratory effort and clear to auscultation bilaterally AUSCULTATION: clear to auscultation bilaterally Cardio: COMMON NORMALS: regular rate and regular rhythm RATE: regular rate RHYTHM: regular rhythm GI: COMMON NORMALS: Normal to inspection, nondistended, normoactive bowel sounds present, Soft to palpation, non-tender, No hepatosplenomegaly present and no masses INSPECTION: Yes normal to inspection and No abdominal wall ecchymosis AUSCULTATION: Yes normoactive bowel sounds PALPATION: Yes Soft to palpation and Yes No hepatosplenomegaly present Back/Pelvis: COMMON NORMALS: thoracic and lumbar spine normal to inspection, no thoracic nor lumbar tenderness and thoraco-lumbar ROM normal Extremity: COMMON NORMALS: capillary refill normal, no clubbing, cyanosis or edema, no calf tenderness and no pedal edema GENERAL: Yes normal exam except as noted RIGHT LOWER EXTREMITY: Yes knee joint LEFT LOWER EXTREMITY: Yes knee joint OTHER: bilateral anterior knees with mild abrasions; edema bilaterally L>R; she has fairly normal painless ROM involving R knee; her L knee is significantly tender; no obvious bony abnormalities on either side; bilateral LEs are neurovascularly intact Neuro: [place] COMA SCALE: document [facility] findings [place] coma scale eye opening: Spontaneous [place] coma scale verbal response: Orientated [place] coma scale motor response: Obey commands [place] coma scale total score: 15 COMMON NORMALS: patient oriented x3, CN's II-XII intact bilaterally, moves all extremities, no focal motor deficits and no sensory deficits noted SENSORIUM/ORIENTATION: Yes alert, Yes oriented to person, Yes oriented to place and Yes oriented to time SPEECH: speech normal GAIT: Yes Normal gait present Skin: TRAUMA: abrasion (anterior knees) Course Vital Signs: Vital signs: Vital Signs Temperature 97.7 F 05/18/24 10:09 Pulse Rate 81 05/18/24 10:09 Respiratory Rate 17 05/18/24 10:09 Blood Pressure 181/70 05/18/24 10:09 Pulse Oximetry 96 05/18/24 10:09 Oxygen Delivery Me thod Room Air 05/18/24 10:09 MDM - Extremity Injury (Lower) Medical Decision Making No acute fractures visualized on her x-rays. She does have a walker at home she may use for ambulation. Recommend she follow-up with primary care next week. Discussed icing and elevating the extremity to help with swelling. Lab Data Radiology Impressions Knee X-Ray 05/18/24 10:26 IMPRESSION: No acute findings. All radiology interpretation(s) finalized by discharge Discharge Plan Discharge Patient Disposition: Home Clinical Impression: Contusion of knee Qualifiers: Encounter type: initial encounter Laterality: unspecified laterality Qualified Code(s): S80.00XA - Contusion of unspecified knee, initial encounter Condition: Stable Prescriptions: New acetaminophen-codeine 300-30 mg tablet 1 tab PO Q6H PRN (Reason: pain) Qty: 14 0RF Discontinued hydrocodone-acetaminophen 5-325 mg tablet 1 tab PO Q8H PRN (Reason: pain (scale score 7-10)) Qty: 7 0RF No Action alprazolam 0.25 mg tablet 0.125 mg PO TID omeprazole 40 mg capsule,delayed release(DR/EC) 40 mg PO DAILY fluticasone furoate 50 mcg/actuation blister with device INHALATION cyanocobalamin (vitamin B-12) 1,000 mcg capsule 1,000 mcg PO DAILY (DME) DME: Walker Unit See Rx Instructions .ROUTE .MEDSUPPLY Qty: 1 0RF Rx Instructions: As directed ascorbate calcium (vitamin C) 500 mg tablet 500 mg PO DAILY pyridoxine (vitamin B6) 50 mg tablet 25 mg PO DAILY cetirizine [All Day Allergy (cetirizine)] 10 mg tablet 10 mg PO DAILY PRN celecoxib [Celebrex] 200 mg capsule 200 mg PO DAILY ketoconazole 1 % shampoo 1 applic topical Q3D Qty: 125 0RF gabapentin 300 mg capsule 300 mg PO TID topiramate 50 mg tablet 50 mg PO BID 30 Days Qty: 60 0RF mupirocin 2 % ointment topical fluticasone propionate 50 mcg/actuation spray,suspension intranasal losartan 50 mg tablet PO prednisolone acetate 1 % drops,suspension ophthalmic (eye) prednisone 5 mg tablet See Rx Instructions PO DAILY Qty: 60 0RF Rx Instructions: 1-2 tabs orally daily; diclofenac sodium [Voltaren Arthritis Pain] 1 % gel 4 g topical QID Qty: 100 0RF Rx Instructions: apply to single knee, ankle, foot; for foot includes sole/toes/top of foot lamotrigine 150 mg tablet See Rx Instructions .ROUTE .COMPLEX Qty: 180 3RF Dose Instruction: TAKE 1 TABLET BY MOUTH TWICE DAILY Rx Instructions: TAKE 1 TABLET BY MOUTH TWICE DAILY nitrofurantoin monohyd/m-cryst [Macrobid] 100 mg capsule 100 mg PO Q12H 7 Days Qty: 14 0RF Rx Instructions: must administer with a meal/food cyclobenzaprine 5 mg tablet 5 mg PO BID PRN (Reason: muscle spasm) Qty: 15 0RF triamcinolone acetonide 0.1 % cream 1 applic topical BID Qty: 30 0RF Discharge Orders: Discharge ED (Routine); Ordered 05/18/24 Ordered By: Syeda Ventura Referrals: Narendra Hassan MD [Primary Care Provider] - Patient Instructions: Knee Pain (ED) Activity Restrictions/Additional Instructions: As we discussed, I want you to ambulate with your walker at all times to help prevent a fall related to your knee pain. You need to ice and elevate the knee joints to help with swelling. Please follow-up with primary care next week for reevaluation. You may use your pain medication sparingly for severe pain. Coding Level of Care Code ED Manager Of Training for Mireya Alves
[2024-05-18] MEDS: acetaminophen-codeine 300-30mg Tablet 1 TAB PO (11:50)
== END 2024-05-18 12:25 | disposition home or self-care (01) ==
PROVIDERS: Emergency Provider Physician Assistant; PCP Family Medicine
DX: S80.02XA Contusion of left knee, initial encounter (principal); M25.561 Pain in right knee; W19.XXXA Unspecified fall, initial encounter
CPT/HCPCS: 73562; 99283

== ENCOUNTER → 2024-05-23 11:00 | Outpatient (BNVA) | payer MEDICARE, SELFPAY | PROVIDERS: PCP Family Medicine; Visit Provider Nurse Practitioner | DX: M25.562 Pain in left knee (principal); M19.012 Primary osteoarthritis, left shoulder; M75.52 Bursitis of left shoulder; M67.814 Other specified disorders of tendon, left shoulder; S46.812A Strain of other muscles, fascia and tendons at shoulder and upper arm level, left arm, initial encounter; X58.XXXA Exposure to other specified factors, initial encounter | CPT/HCPCS: 20610; 99214; J1100; J2795; J3301 ==

== ENCOUNTER → 2024-07-23 10:31 | Outpatient (BNVA) | payer MEDICARE, SELFPAY | PROVIDERS: PCP Family Medicine; Visit Provider Nurse Practitioner | DX: S46.812D Strain of other muscles, fascia and tendons at shoulder and upper arm level, left arm, subsequent encounter (principal); M67.814 Other specified disorders of tendon, left shoulder; M75.52 Bursitis of left shoulder; M19.012 Primary osteoarthritis, left shoulder; X58.XXXD Exposure to other specified factors, subsequent encounter | CPT/HCPCS: 99214 ==

== ENCOUNTER → 2024-07-30 09:23 | Outpatient (BNVA) | payer MEDICARE, SELFPAY | PROVIDERS: PCP Family Medicine; Visit Provider Nurse Practitioner Family | DX: L57.8 Other skin changes due to chronic exposure to nonionizing radiation (principal); L81.0 Postinflammatory hyperpigmentation; L28.0 Lichen simplex chronicus; L81.4 Other melanin hyperpigmentation; D22.39 Melanocytic nevi of other parts of face; Z08 Encounter for follow-up examination after completed treatment for malignant neoplasm; Z85.828 Personal history of other malignant neoplasm of skin; L57.0 Actinic keratosis; X32.XXXA Exposure to sunlight, initial encounter | CPT/HCPCS: 17000; 99213 ==

== ENCOUNTER → 2024-08-20 12:34 | Outpatient (BNVA) | payer MEDICARE, SELFPAY | PROVIDERS: PCP Family Medicine; Visit Provider Family Medicine | DX: Z01.818 Encounter for other preprocedural examination (principal) | CPT/HCPCS: 80053; 81003; 85025; 93005 ==

== ENCOUNTER 2024-08-28 12:41 | Day surgery (SDC) | payer MEDICARE, SELFPAY ==
[2024-08-28] VITALS (10 sets, daily range): BP systolic 131–153; BP diastolic 75–111; PULSE 82–100; RESP 17–18; TEMP 36.2–36.4; O2SAT 93–99; BMI 32.4
[2024-08-28] MEDS: CELEcoxib 200 mg Capsule 400 MG PO (13:26)
[2024-08-28] MEDS: acetaminophen 1,000 MG/100 ML PIGGYBACK 400 MG IV (13:26)
[2024-08-28] MEDS: sodium chloride 0.9% 1,000 ML 30 ML IV (13:26)
--- NOTE | 2024-08-28 13:36 | SUR.PREOP ---
Timeout was completed at bedside by Dr Burkett for an interscalene block on right side. 30ml ropivicaine was used for nerve block
--- NOTE | 2024-08-28 13:48 | ANES.PREANE2 ---
Pre-Anesthetic Assessment Height/Weight: Height 1.65 m Weight 88.451 kg Temp Pulse Resp BP Pulse Ox O2 Del Method 97.1 F L 86 17 142/111 98 Room Air 08/28/24 13:01 08/28/24 13:01 08/28/24 13:01 08/28/24 13:01 08/28/24 13:01 08/28/24 13:04 Operation Date: 08/28/24 14:35 Proposed Procedures p Distal Clavicle Resection(Left) - Vianney Berman MD s LEFT SHOULDER OPEN ACROMIOPLASTY(Left) - Vianney Berman MD s POSSIBLE ROTATOR CUFF REPAIR(Left) - Vianney Berman MD Familial anesthetic complications: NOne Was Beta Sophia taken within 24 hours: N/A Was Clonidine taken within 24 hours: N/A Last intake: Intake Last Liquid Date 08/28/24 Last Liquid Time 09:00 Last Solid Date 08/27/24 Last Solid Time 23:59 Social No alcohol and No tobacco Exam alert, oriented x 3, clear to auscultation bilaterally and regular rate & rhythm Airway Mallampati: Class II Dentition: false Neuropsych Seizure (Hx epilepsy, no seizures since 2003, states she got an injection and they never happened again) Anesthetic Plan ASA status: 3 Anesthesia: General and Regional (specify below) Risk of > 500 ml blood loss (7ml/kg in children): No Medications/Allergies Home Medications ?Medication ?Instructions ?Recorded ?Confirmed ?Last Taken ?Type DME: Walker #1 ea 06/04/19 07/23/24 Unknown Rx alprazolam 0.25 mg tablet 0.125 mg PO TID 06/04/19 08/27/24 08/26/24 History cyanocobalamin (vitamin B-12) 1,000 mcg PO DAILY 06/04/19 08/27/24 08/26/24 History 1,000 mcg capsule omeprazole 40 mg capsule,delayed 40 mg PO DAILY 06/04/19 08/27/24 08/26/24 History release ascorbate calcium (vitamin C) 500 500 mg PO DAILY 06/04/20 08/27/24 08/26/24 History mg tablet pyridoxine (vitamin B6) 50 mg 25 mg PO DAILY 06/04/20 08/27/24 08/26/24 History tablet celecoxib 200 mg capsule (Celebrex) 200 mg PO DAILY 07/09/22 08/27/24 08/26/24 History cetirizine 10 mg tablet (All Day 10 mg PO DAILY PRN Allergy Symptoms 07/09/22 08/27/24 08/26/24 History Allergy (cetirizine)) ketoconazole 1 % shampoo 1 applic topical Q3D #125 mL 11/12/22 08/27/24 Unknown Rx topiramate 50 mg tablet 50 mg PO BID pain 30 days #60 tabs 12/27/22 08/27/24 08/26/24 Rx diclofenac sodium 1 % topical gel 4 g topical QID #100 grams 01/04/23 08/27/24 08/26/24 Rx (Voltaren Arthritis Pain) gabapentin 300 mg capsule 300 mg PO TID 07/05/23 08/27/24 08/26/24 History fluticasone propionate 50 50 mcg intranasal DAILY PRN 04/13/24 08/27/24 Unknown History mcg/actuation nasal Allergy Symptoms spray,suspension losartan 50 mg tablet 50 mg PO DAILY 04/13/24 08/27/24 08/26/24 History mupirocin 2 % topical ointment 1 applic topical PRN rash 04/13/24 08/27/24 Unknown History lamotrigine 150 mg tablet 150 mg PO BID 08/27/24 08/27/24 08/26/24 History Allergies Allergy/AdvReac Type Severity Reaction Status Date / Time gabapentin Allergy Severe rash and Verified 08/28/24 12:56 made her sick azithromycin Allergy Mild ALGY-Rash Verified 08/28/24 12:56 cefdinir (From Omnicef) Allergy Mild rash Verified 08/28/24 12:56 clarithromycin (From Biaxin) Allergy Mild Rash Verified 08/28/24 12:56 carisoprodol Allergy dizziness Verified 08/28/24 12:56 blurred vision hydromorphone (From Dilaudid) Allergy itchiness Verified 08/28/24 12:56 Sulfa (Sulfonamide Allergy Rash Verified 08/28/24 12:56 Antibiotics) Penicillins AdvReac Mild Immune to Verified 08/28/24 12:56 it Current Medications Generic Name Dose Route Start Last Admin Trade Name Freq PRN Reason Stop Dose Admin Sodium Chloride 1,000 mls @ 30 mls/hr 08/28/24 13:00 08/28/24 13:26 Sodium Chloride 0.9% IV 08/29/24 12:59 30 mls/hr .Q24H KADE Administration PFSH Anesthesia Medical History Lumbago Rash Arthralgia Cervicalgia Family History Mother Cancer Social History Smoking and tobacco/nicotine status: never used tobacco/nicotine Data Anesthesia Cardiac Studies: No Data to Display
--- NOTE | 2024-08-28 13:51 | ANES.PROC ---
Anesthesia Procedures Procedure/Date: 08/28/24 Nerve Block ^: Nerve Block 1: Main Anesthesia: general anesthesia Time Out Performed: Yes Consent: requested by attending/covering physician, from patient, from other, risks and benefits reviewed and patient agrees to proceed Nerve block location: interscalene (L) Anesthesia monitors applied: pulse oximetry, EKG, BP cuff and oxygen Nerve block position: semi sitting Anesthetic Used: ropivicaine 0.5% (20 ml) and with decadron (4 mg) Ultrasound used to: recognize landmarks, visualize and ID brachial plexus, in supraclavicular region and visualize and ID interscalene groove Interscalene/Femoral BLK: 2 stimuplex 22 g needle used for position and inplane approach, visualize local anesthetic spread and no vascular puncture identified Injection: neg aspiration of heme Patient Tolerated Procedure: well Complications: none Additional Comments: diagnosis: Osteoarthritis L shoulder
[2024-08-28] MEDS: ceFAZolin 2,000 mg SDV 2000 MG IVP (14:02)
--- NOTE | 2024-08-28 14:02 | W.PM.OPSUD ---
Surgery/Procedure H&P Update DATE OF PROCEDURE: August 28, 2024 DATE H&P PERFORMED: 08/20/24 H&P UPDATE INFORMATION: I have reviewed H&P completed within last 30 days, I have examined patient prior to procedure, No changes to prior documentation, H&P is in [facility] EMR on date indicated and Risks and benefits of the procedure reviewed PRIMARY INDICATION FOR PROCEDURE: Procedure(s): MR shoulder LT wo con* [id number] IMPRESSION: 1. Significant subacromial subdeltoid bursitis with extension into the substance of the supraspinatus. Mild glenohumeral effusion. No additional features or clinical history to strongly suggest septic etiology although joint fluid /bursal analysis may be considered for more definitive exclusion of infectious etiology if clinically warranted. 2. Moderate to severe supraspinatus tendinosis . Moderate superimposed bursal surface fraying from the myotendinous junction to the footprint and at least 1 near full-thickness tear noted . 3. Linear slit-like intermediate grade tear of the infraspinatus from the myotendinous junction to the articular surface fibers of the footprint. 4. Moderate to severe AC joint arthrosis. PLANNED PROCEDURE: Operation Date: 08/28/24 14:35 Proposed Procedures p Distal Clavicle Resection(Left) - Vianney Berman MD s LEFT SHOULDER OPEN ACROMIOPLASTY(Left) - Vianney Berman MD s POSSIBLE ROTATOR CUFF REPAIR(Left) - Vianney Berman MD Related Problem List Diagnoses (1) Tendinosis of left rotator cuff: (2) Primary osteoarthritis, left shoulder: (3) Tear of left infraspinatus tendon: Qualifiers: Encounter type: initial encounter Qualified Code(s): S46.812A - Strain of other muscles, fascia and tendons at shoulder and upper arm level, left arm, initial encounter (4) Subdeltoid bursitis of left shoulder joint:
[2024-08-28] MEDS: ceFAZolin 1,000 mg SDV 1000 MG IRRIGATION (14:56)
--- NOTE | 2024-08-28 16:32 | PM.OP ---
Operative Report Date of procedure: August 28, 2024 Pre-op diagnosis: Left shoulder impingement with degenerative osteoarthritis of the acromioclavicular and glenohumeral joints Post-op diagnosis: Left shoulder impingement with degenerative osteoarthritis of the acromioclavicular and glenohumeral joints and large rotator cuff tear Post-op findings: Large left rotator cuff tear primarily involving the supraspinatus tendon. This was in the body of the tendon with intact insertion point. Large expanded distal clavicle with joint fluid in the acromioclavicular joint. Significant impingement. Procedure done: Left rotator cuff repair with acromioplasty, distal clavicle resection, and bursectomy Implants: None Specimens removed/disposition: None Pathology: None Surgeon: Vianney Berman MD Financial Legal Assistant: Faith Santana, nurse practitioner who services were required for positioning, retraction, closure, and repair of the rotator cuff. Anesthesia: General (Intubated, ASA 3) Estimated blood loss (mL): 10 IV fluids (mL): 800 Urine output (mL): 0 (No Phelan) Complications: None Findings: Severe degenerative osteoarthritis of the acromioclavicular joint with intra-articular fluid and distal clavicle expansion causing impingement on the supraspinatus tendon. Impingement from the acromion. Large supraspinatus rotator cuff tear within the body of the tendon under the acromioclavicular joint and acromion with intact insertion Condition: stable Disposition: PACU (Then return to same-day surgery for discharge to home) Brief History: This 74-year-old woman presented to the office complaining of severe left shoulder pain. She had an injury at home where she felt a pop. Initially, she was given subacromial cortisone injections and started an extensive home physical therapy program for range of motion and strengthening. The patient did have slight increase in glucose secondary to the corticosteroid injection. Patient had significant difficulties with range of motion exercises and physical therapy. MRI demonstrated subacromial subdeltoid bursitis with extension into the substance of the supraspinatus as well as moderate to severe tendinosis of the supraspinatus with superimposed bursal surface fraying with at least 1 full-thickness tear noted. There were also slitlike intermediate grade tears of the infraspinatus as well. Acromioclavicular joint was noted to be moderate to severe degenerative arthritis. The patient wished to proceed with surgical intervention in the form of an acromioplasty with distal clavicle resection and repair of rotator cuff if appropriate. Risks and complications were discussed with her in the clinic. Consents were signed and questions were answered. She was given further opportunity on the day of surgery for further questions and the procedure was reviewed. Procedure: The patient was brought to the operating theater and underwent general intubated anesthesia, ASA 3. The patient was placed in a beachchair position and subsequently the left upper extremity was prepped and draped in the usual fashion utilizing DuraPrep. The arm was draped free. A surgical pause was performed prior to commencement of the surgical procedure. At the time of the surgical pause, we confirmed the site and side of surgery as well as administration of appropriate preoperative antibiotics Ancef 2 g which was well-tolerated. MRI was also reviewed at that time. Following the surgical pause, an incision was made at approximately the level of the acromioclavicular joint extending across the anterolateral corner of the acromion and distally as necessary. Care was taken to avoid injury to the axillary nerve by limiting the distal extent of the incision. Dissection continued through skin and soft tissues using a scalpel. Hemostasis was obtained using electrocautery. Soft tissues were elevated off the acromion and the acromioclavicular joint. The acromioclavicular joint was exposed. A saw was then used to resect the distal clavicle without difficulty. The undersurface of the clavicle was palpated and was slightly further debrided. A power rasp was used to further smooth the area. When this was felt to be adequately resected, the wound was irrigated. An acromioplasty was then accomplished using a combination of a saw and a power rasp. With this, we were able to remove compression caused by the acromion. The rotator cuff was then evaluated to look for tears. There was noted to be a large tear involving the supraspinatus tendon in the area of the impingement from the acromion and acromioclavicular joint. This was evaluated and freshened. It was complex in nature and that it was horizontal and vertical. The insertion site was intact. We were able to mobilize the tendon so that it could be primarily repaired utilizing 0 Ethibond. Multiple sutures were placed to address the tear. The shoulder was then placed through full range of motion and reevaluated for any further evidence of tear. Finding none, attention was directed to closure. The wound was irrigated and closure was accomplished with 0 Vicryl in the capsular tissues overlying the acromioclavicular joint area as well as over the acromion and down into the deltoid muscle. 3-0 Monocryl was used to close the subcutaneous tissues followed by 4-0 Monocryl subcuticular closure. This was followed by Dermabond, Steri-Strips, and OpSite. The patient was placed in a sling shot style sling and was returned to the recovery room in satisfactory condition. The patient will be discharged to home to follow-up in the office as scheduled. There were no complications and no specimens. Related Problem List Diagnoses (1) Tear of left supraspinatus tendon: (2) Osteoarthritis of left acromioclavicular joint: (3) Tendinosis of left rotator cuff: (4) Subdeltoid bursitis of left shoulder joint: (5) Impingement of left shoulder:
--- NOTE | 2024-08-28 16:43 | SUR.PHASEII ---
Received report that patient was doing good, had a block and had no pain. Upon arrival to Phase II patient was almost in tears and stated she had been saying her arm hurt and that she needs to go pee. Patient was assisted to bedside commode and pain med ordered.
[2024-08-28] MEDS: HYDROcodone-acetaminophen 5-325 mg Tablet 1 TAB PO (17:07)
--- NOTE | 2024-08-28 17:35 | ANE.PACU2 ---
Inpatient post-anesthesia follow up: Airway intact: Yes Vital signs: Temperature 97.5 F Pulse Rate 83 Respiratory Rate 18 Blood Pressure 138/81 Pulse Oximetry 95 Oxygen Delivery Me thod Room Air Oxygen Flow Rate 8 Fraction of Inspir ed Oxygen Hydration adequate: Yes Nausea and vomiting: No Pain level: 1 Mental status: Baseline
== END 2024-08-28 17:35 | disposition home or self-care (01) ==
PROVIDERS: PCP Family Medicine; Visit Provider Specialist
PROC: (CPT 23120; principal; 2024-08-28 14:15)
PROC: (CPT 23130; 2024-08-28 14:15)
PROC: (CPT 23410; 2024-08-28 14:15)
DX: S46.012A Strain of muscle(s) and tendon(s) of the rotator cuff of left shoulder, initial encounter (principal); M75.42 Impingement syndrome of left shoulder; M19.012 Primary osteoarthritis, left shoulder; M75.52 Bursitis of left shoulder; M67.814 Other specified disorders of tendon, left shoulder; Z79.899 Other long term (current) drug therapy; Z88.2 Allergy status to sulfonamides; Z88.0 Allergy status to penicillin; Z88.5 Allergy status to narcotic agent; Z88.1 Allergy status to other antibiotic agents; X58.XXXA Exposure to other specified factors, initial encounter; Z86.69 Personal history of other diseases of the nervous system and sense organs
CPT/HCPCS: 23410; 23120; J0131; J0690; J1100; J2704; J2710; J2795; J3010; J3490; J7030; J9999

== ENCOUNTER → 2024-09-10 11:22 | Outpatient (BNVA) | payer MEDICARE, SELFPAY | PROVIDERS: PCP Family Medicine; Visit Provider Nurse Practitioner | DX: Z98.890 Other specified postprocedural states (principal); S46.812A Strain of other muscles, fascia and tendons at shoulder and upper arm level, left arm, initial encounter; X58.XXXA Exposure to other specified factors, initial encounter; M75.52 Bursitis of left shoulder; M19.012 Primary osteoarthritis, left shoulder | CPT/HCPCS: 99024 ==

== ENCOUNTER → 2024-09-26 12:16 | Outpatient (BNVA) | payer MEDICARE, SELFPAY | PROVIDERS: PCP Family Medicine; Visit Provider Specialist | DX: G40.309 Generalized idiopathic epilepsy and epileptic syndromes, not intractable, without status epilepticus (principal); G52.1 Disorders of glossopharyngeal nerve | CPT/HCPCS: 99213 ==

== ENCOUNTER → 2024-10-01 08:33 | Outpatient (BNVA) | payer MEDICARE, SELFPAY | PROVIDERS: PCP Family Medicine; Visit Provider Nurse Practitioner | DX: Z98.890 Other specified postprocedural states (principal) | CPT/HCPCS: 99024 ==

== ENCOUNTER → 2024-10-29 08:27 | Outpatient (BNVA) | payer MEDICARE, SELFPAY | PROVIDERS: PCP Family Medicine; Visit Provider Nurse Practitioner | DX: Z98.890 Other specified postprocedural states (principal); M19.012 Primary osteoarthritis, left shoulder | CPT/HCPCS: 20610; 99024; 99213; J1100; J2795; J3301; J9999 ==

== ENCOUNTER → 2024-11-09 08:30 | Outpatient (BNVA) | payer MEDICARE, SELFPAY | PROVIDERS: PCP Family Medicine; Visit Provider Nurse Practitioner | DX: S49.91XA Unspecified injury of right shoulder and upper arm, initial encounter (principal); S42.024A Nondisplaced fracture of shaft of right clavicle, initial encounter for closed fracture; W18.39XA Other fall on same level, initial encounter | CPT/HCPCS: 73000; 73030 ==

== ENCOUNTER 2024-11-09 10:08 | Outpatient (CLI) | payer MEDICARE, SELFPAY | END 2024-11-09 10:09 | disposition home or self-care (01) | LOC: SPT 10:10 | PROVIDERS: PCP Family Medicine; Visit Provider Nurse Practitioner | DX: Z46.89 Encounter for fitting and adjustment of other specified devices (principal); S42.91XD Fracture of right shoulder girdle, part unspecified, subsequent encounter for fracture with routine healing; X58.XXXD Exposure to other specified factors, subsequent encounter | CPT/HCPCS: A4565 ==

== ENCOUNTER → 2024-11-19 09:29 | Outpatient (BNVA) | payer MEDICARE, SELFPAY | PROVIDERS: PCP Family Medicine; Visit Provider Podiatrist Foot & Ankle Surgery | DX: M21.622 Bunionette of left foot (principal); M20.42 Other hammer toe(s) (acquired), left foot | CPT/HCPCS: 99203 ==

== ENCOUNTER 2024-11-28 12:30 | Outpatient (CLI) | payer MEDICARE, SELFPAY ==
--- NOTE | 2024-11-28 12:40 | XR_ITS ---
WS: [id number] DEXA (DUAL ENERGY X-RAY ABSORPTIOMETRY) Bone mineral density was performed using a [place] machine. HISTORY: SCREENING FOR OSTEOPOROSIS COMPARISON: None available. Lumbar spine BMD (L1-L4): 1.376 g/cm2 T score: 1.6 Z score: 2.7 Left forearm BMD: 0.903 g/cm2. T score: 0.3 Z score: 2.5 XR/XR DEXA axial skeleton* [id number] IMPRESSION: NORMAL BONE MINERAL DENSITY based upon the WHO classification for females.
--- NOTE | 2024-11-28 12:40 | MM_ITS ---
WS: [id number] BILATERAL 3D TOMOSYNTHESIS DIGITAL SCREENING MAMMOGRAPHY WITH CAD CLINICAL INFORMATION: SCREENING HISTORY: Screening mammogram. No current complaints. COMPARISON: 2023 TECHNIQUE: Bilateral CC and MLO views. FINDINGS: Scattered fibroglandular densities bilaterally. No suspicious focal mass, asymmetry, calcifications, or architectural distortion. No evidence of malignancy. Vascular calcification. A few incidental lucent centered calcifications. MM/MM [facility] tomosynthesis [id number] IMPRESSION: DENSITY: There are scattered areas of fibroglandular density. BI-RADS: 2 - Benign. FOLLOW UP: 1 Year Follow-up Recommend return to annual screening mammography.
== END 2024-11-28 12:31 | disposition home or self-care (01) ==
LOC: RAD 12:31
PROVIDERS: PCP Family Medicine; Visit Provider Nurse Practitioner Family
DX: M81.0 Age-related osteoporosis without current pathological fracture (principal); Z12.31 Encounter for screening mammogram for malignant neoplasm of breast
CPT/HCPCS: 77063; 77067; 77080

== ENCOUNTER → 2024-11-30 12:59 | Outpatient (BNVA) | payer MEDICARE, SELFPAY | PROVIDERS: PCP Family Medicine; Visit Provider Nurse Practitioner | DX: S42.024D Nondisplaced fracture of shaft of right clavicle, subsequent encounter for fracture with routine healing (principal); X58.XXXD Exposure to other specified factors, subsequent encounter | CPT/HCPCS: 73000; 99214 ==

== ENCOUNTER 2024-12-05 10:38 | Outpatient (CLI) | payer MEDICARE, SELFPAY ==
--- NOTE | 2024-12-05 11:00 | MR_ITS ---
WS: [id number] MRI RIGHT SHOULDER NONCONTRAST TECHNIQUE: Sagittal T2, coronal T1, T2 and proton density imaging. Axial gradient PDE imaging. CLINICAL INFORMATION: nondisplaced fracture of shaft of right clavicle COMPARISON: Radiograph 11/30/2024 FINDINGS: Images degraded by motion. Provided history of RIGHT clavicular fracture. Mild bowing deformity of the midclavicular shaft on the prior radiograph. The entirety of the clavicle not included on this examination. Prior healed fracture in the distal clavicle with mild bone deformity and callus formation. Images degraded by motion in this area. This appears subacute to chronic with minimal if any edema in this location. Proximal clavicle is not entirely imaged on this study Subacromial spurring with impingement on the subacromial space. Advanced arthritis of the AC joint with hypertrophic changes. Advanced degenerative arthritis glenohumeral articulation. Subchondral cystic change involving the greater tuberosity. Tendinopathy supraspinatus with calcific tendinitis. Infra spinatus is intact. No tendon retraction. Normal teres minor. Subscapularis tendon is normal in appearance. Biceps tendon appears intact within the bicipital groove. Small amount of fluid in the subcoracoid bursa. Degenerative fraying of the glenoid labrum. Subchondral cystic change and edema at the greater tuberosity. MR/MR shoulder RT wo con* [id number] IMPRESSION: 1. Fracture deformity with callus formation involving the distal clavicle may be due to prior injury. No significant edema in this location. The more proxima l area of concern on the radiograph with bowing does not appear to be included on this study. If persistent concern this could be further evaluated with CT. 2. Advanced arthritis at the AC joint with fluid and edema. Associated hypertr ophic changes with synovial thickening. Subacromial spurring with impingement d istal supraspinatus. 3. Tendinopathy with calcific tendinitis supraspinatus and infraspinatus. No h igh-grade tears. 4. Normal subscapularis and teres minor. 5. Biceps tendon appears intact within the bicipital groove. 6. Intra-articular biceps tendon appears intact with mild tendinopathy. 7. Edema with subchondral cystic change of the greater tuberosity.
== END 2024-12-05 10:39 | disposition home or self-care (01) ==
PROVIDERS: PCP Family Medicine; Visit Provider Nurse Practitioner
DX: S42.024A Nondisplaced fracture of shaft of right clavicle, initial encounter for closed fracture (principal); M19.011 Primary osteoarthritis, right shoulder; M75.91 Shoulder lesion, unspecified, right shoulder; M85.611 Other cyst of bone, right shoulder; X58.XXXA Exposure to other specified factors, initial encounter
CPT/HCPCS: 73221

== ENCOUNTER → 2024-12-17 11:50 | Outpatient (BNVA) | payer MEDICARE, SELFPAY | PROVIDERS: PCP Family Medicine; Visit Provider Nurse Practitioner | DX: M19.011 Primary osteoarthritis, right shoulder (principal); M25.811 Other specified joint disorders, right shoulder; M67.911 Unspecified disorder of synovium and tendon, right shoulder; Z01.818 Encounter for other preprocedural examination | CPT/HCPCS: 36415; 80053; 81001; 85025; 87077; 87086; 87186; 99214 ==

== ENCOUNTER → 2024-12-24 08:59 | Outpatient (BNVA) | payer MEDICARE, SELFPAY | PROVIDERS: PCP Family Medicine; Visit Provider Nurse Practitioner | DX: M19.012 Primary osteoarthritis, left shoulder (principal); M75.52 Bursitis of left shoulder; Z98.890 Other specified postprocedural states | CPT/HCPCS: 99213 ==

== ENCOUNTER → 2025-01-25 11:56 | Outpatient (BNVA) | payer MEDICARE, SELFPAY | PROVIDERS: PCP Family Medicine; Visit Provider Family Medicine | DX: Z01.818 Encounter for other preprocedural examination (principal) | CPT/HCPCS: 80053; 81003; 85025 ==

== ENCOUNTER → 2025-01-28 09:26 | Outpatient (BNVA) | payer MEDICARE, SELFPAY | PROVIDERS: PCP Family Medicine; Visit Provider Podiatrist Foot & Ankle Surgery | DX: M21.622 Bunionette of left foot (principal); M20.42 Other hammer toe(s) (acquired), left foot | CPT/HCPCS: 99213 ==

== ENCOUNTER 2025-01-29 10:40 | Day surgery (SDC) | payer MEDICARE, SELFPAY ==
[2025-01-29] VITALS (9 sets, daily range): BP systolic 125–169; BP diastolic 43–97; PULSE 68–95; RESP 16–18; TEMP 36.1–36.6; O2SAT 92–97; BMI 30.9
--- NOTE | 2025-01-29 11:39 | ANES.PREANE2 ---
Pre-Anesthetic Assessment Height/Weight: Height 5 ft 5 in Preop Diagnosis: Impingement of shoulder Operation Date: 01/29/25 12:50 Proposed Procedures p RIGHT Open SHoulder Distal Clavicle Resection(Right) - Vianney Berman MD s Debridement(Right) - Vianney Berman MD Was Beta Sophia taken within 24 hours: N/A Was Clonidine taken within 24 hours: N/A Social No alcohol and No tobacco Exam alert, oriented x 3, clear to auscultation bilaterally and regular rate & rhythm Airway Submandibular: within normal limits Cervical ROM: within normal limits Mallampati: Class II Dentition: false Anesthetic Plan ASA status: 3 Anesthesia: General and Regional (specify below) Other: No prior issues with anesthesia NPO since yesterday evening Hypertension Prior seizure history, no seizure since 2003 RENARD without CPAP. States she will wear 1 tonight Labs reviewed from 01/25/2025 and acceptable for procedure Plan for general anesthesia with preop nerve block Medications/Allergies Home Medications ?Medication ?Instructions ?Recorded ?Confirmed ?Last Taken ?Type DME: Walker #1 ea 06/04/19 01/25/25 Unknown Rx alprazolam 0.25 mg tablet 0.25 mg PO TID 06/04/19 01/28/25 01/28/25 History cyanocobalamin (vitamin B-12) 1,000 mcg PO DAILY 06/04/19 01/28/25 01/28/25 History 1,000 mcg capsule ascorbate calcium (vitamin C) 500 500 mg PO DAILY 06/04/20 01/28/25 01/28/25 History mg tablet pyridoxine (vitamin B6) 50 mg 25 mg PO DAILY 06/04/20 01/28/25 01/28/25 History tablet celecoxib 200 mg capsule (Celebrex) 200 mg PO DAILY 07/09/22 01/28/25 01/28/25 History cetirizine 10 mg tablet (All Day 10 mg PO DAILY PRN Allergy Symptoms 07/09/22 01/28/25 01/26/25 History Allergy (cetirizine)) ketoconazole 1 % shampoo 1 applic topical Q3D #125 mL 11/12/22 01/28/25 Unknown Rx gabapentin 300 mg capsule 300 mg PO TID 07/05/23 01/28/25 01/28/25 History fluticasone propionate 50 50 mcg intranasal DAILY PRN 04/13/24 01/28/25 1 Day Ago History mcg/actuation nasal Allergy Symptoms ~12/26/24 spray,suspension lamotrigine 150 mg tablet 150 mg PO BID #180 tabs 09/26/24 01/28/25 01/28/25 Rx topiramate 50 mg tablet 50 mg PO BID pain 30 days #120 09/26/24 01/28/25 01/28/25 Rx tabs arm sling #1 ea 11/09/24 01/25/25 Unknown Rx diclofenac sodium 1 % topical gel 4 g topical QID #100 grams 11/19/24 01/28/25 01/28/25 Rx (Voltaren Arthritis Pain) hydrocodone 5 mg-acetaminophen 325 1 tab PO Q8H PRN pain 5 days #15 01/08/25 01/28/25 Unknown Rx mg tablet tabs Allergies Allergy/AdvReac Type Severity Reaction Status Date / Time gabapentin Allergy Severe rash and Verified 01/29/25 11:19 made her sick azithromycin Allergy Mild ALGY-Rash Verified 01/29/25 11:19 cefdinir (From Omnicef) Allergy Mild rash Verified 01/29/25 11:19 clarithromycin (From Biaxin) Allergy Mild Rash Verified 01/29/25 11:19 carisoprodol Allergy dizziness Verified 01/29/25 11:19 blurred vision hydromorphone (From Dilaudid) Allergy itchiness Verified 01/29/25 11:19 Sulfa (Sulfonamide Allergy Rash Verified 01/29/25 11:19 Antibiotics) Penicillins AdvReac Mild Immune to Verified 01/29/25 11:19 it [facility] Anesthesia Medical History Tendinopathy of right shoulder Impingement of right shoulder Osteoarthritis of acromioclavicular joint Acute pain of right shoulder Lumbago Rash Arthralgia Cervicalgia Surgical History Status post left rotator cuff repair Date of procedure: August 28, 2024 Pre-op diagnosis: Left shoulder impingement with degenerative osteoarthritis of the acromioclavicular and glenohumeral joints Post-op findings: Large left rotator cuff tear primarily involving the supraspinatus tendon. This was in the body of the tendon with intact insertion point. Large expanded distal clavicle with joint fluid in the acromioclavicular joint. Significant impingement. Procedure done: Left rotator cuff repair with acromioplasty, distal clavicle resection, and bursectomy Surgeon: Vianney Berman MD Family History Mother Cancer Social History Smoking and tobacco/nicotine status: never used tobacco/nicotine
[2025-01-29] MEDS: acetaminophen 1,000 MG/100 ML PIGGYBACK 400 MG IV (12:24)
--- NOTE | 2025-01-29 12:24 | ANES.PROC ---
Anesthesia Procedures Procedure/Date: 01/29/25 Nerve Block ^: Nerve Block 1: Main Anesthesia: other (100 mcg fentanyl) Time Out Performed: Yes Consent: requested by attending/covering physician and from patient Laterality: Right Nerve block location: interscalene Anesthesia monitors applied: pulse oximetry, EKG, BP cuff and oxygen Nerve block position: supine Anesthetic Used: ropivicaine 0.5% Amount of anesthesia used (mL): 30 Ultrasound used to: recognize landmarks Nerve Stimulator Used?: Yes Interscalene/Femoral BLK: other needle (pjunk 4inch) Injection: neg aspiration of heme Patient Tolerated Procedure: well Complications: none Additional Comments: Decadron 4 mg added to block
--- NOTE | 2025-01-29 12:27 | W.PM.OPSFHP ---
Same Day Surgery H&P Indication for Procedure/HPI DATE OF PROCEDURE: January 29, 2025 CHIEF COMPLAINT/INDICATIONFOR SURGICAL PROCEDURE: Right shoulder pain with positive MRI demonstrating fracture deformity with callus formation involving the distal clavicle from prior injury. Advanced arthritis of the acromioclavicular joint with fluid and edema. Hypertrophic synovial changes and thickening. Tendinopathy with calcific tendinitis of both the infra and supraspinatus tendons with no high-grade tear. Normal subscapularis and teres minor. Biceps is within the bicipital groove. PREOP DIAGNOSIS: Impingement of shoulder PLANNED PROCEDURE: Operation Date: 01/29/25 12:50 Proposed Procedures p RIGHT Open SHoulder Distal Clavicle Resection(Right) - Vianney Berman MD s Debridement(Right) - Vianney Berman MD Medications/Allergies* Home Medications ?Medication ?Instructions ?Recorded ?Confirmed ?Type alprazolam 0.25 mg tablet 0.25 mg PO TID 06/04/19 01/28/25 History cyanocobalamin (vitamin B-12) 1,000 mcg PO DAILY 06/04/19 01/28/25 History 1,000 mcg capsule ascorbate calcium (vitamin C) 500 500 mg PO DAILY 06/04/20 01/28/25 History mg tablet pyridoxine (vitamin B6) 50 mg 25 mg PO DAILY 06/04/20 01/28/25 History tablet celecoxib 200 mg capsule (Celebrex) 200 mg PO DAILY 07/09/22 01/28/25 History cetirizine 10 mg tablet (All Day 10 mg PO DAILY PRN Allergy Symptoms 07/09/22 01/28/25 History Allergy (cetirizine)) gabapentin 300 mg capsule 300 mg PO TID 07/05/23 01/28/25 History fluticasone propionate 50 50 mcg intranasal DAILY PRN 04/13/24 01/28/25 History mcg/actuation nasal Allergy Symptoms spray,suspension Allergies/Adverse Reactions Allergy/AdvReac Type Severity Reaction Status Date / Time gabapentin Allergy Severe rash and Verified 01/29/25 11:19 made her sick azithromycin Allergy Mild ALGY-Rash Verified 01/29/25 11:19 cefdinir (From Omnicef) Allergy Mild rash Verified 01/29/25 11:19 clarithromycin (From Biaxin) Allergy Mild Rash Verified 01/29/25 11:19 carisoprodol Allergy dizziness Verified 01/29/25 11:19 blurred vision hydromorphone (From Dilaudid) Allergy itchiness Verified 01/29/25 11:19 Sulfa (Sulfonamide Allergy Rash Verified 01/29/25 11:19 Antibiotics) Penicillins AdvReac Mild Immune to Verified 01/29/25 11:19 it Current Medications: Generic Name Dose Route Start Last Admin Trade Name Freq PRN Reason Stop Dose Admin Sodium Chloride 1,000 mls @ 30 mls/hr 01/29/25 11:15 01/29/25 12:00 Sodium Chloride 0.9% IV 01/30/25 11:14 30 mls/hr .Q24H KADE Administration Pertinent History/Comorbid Conditions* Medical History (Updated 12/24/24 @ 08:25 by OMEGA Bravo) Tendinopathy of right shoulder Impingement of right shoulder Osteoarthritis of acromioclavicular joint Acute pain of right shoulder Lumbago Rash Arthralgia Cervicalgia Surgical History (Updated 09/15/24 @ 14:53 by OMEGA Bravo) Status post left rotator cuff repair Date of procedure: August 28, 2024 Pre-op diagnosis: Left shoulder impingement with degenerative osteoarthritis of the acromioclavicular and glenohumeral joints Post-op findings: Large left rotator cuff tear primarily involving the supraspinatus tendon. This was in the body of the tendon with intact insertion point. Large expanded distal clavicle with joint fluid in the acromioclavicular joint. Significant impingement. Procedure done: Left rotator cuff repair with acromioplasty, distal clavicle resection, and bursectomy Surgeon: Vianney Berman MD Family History (Updated 06/04/19 @ 09:56 by Syeda Olson, KENNA) Cancer Mother Social History Smoking and tobacco/nicotine status: never used tobacco/nicotine Pertinent Exam Findings alert, oriented x 3, clear to auscultation bilaterally (Per Dr. Rodriguez preop evaluation) and regular rate & rhythm (Per Dr. Rodriguez preop evaluation) Recommendations Risks and benefits of procedure reviewed and Patient/family agree to proceed Surgery/Procedure today Coding Level of Care Code Acute Code for Chg Fwzelda
[2025-01-29] MEDS: ceFAZolin 2,000 mg SDV 2000 MG IVP (13:16)
[2025-01-29] MEDS: ceFAZolin 1,000 mg SDV 1000 MG IRRIGATION (13:59)
--- NOTE | 2025-01-29 14:52 | P.OP_ITS ---
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 Post-op diagnosis: Right shoulder rotator cuff repair, degenerative osteoarthritis of the acromioclavicular and glenohumeral joints, impingement, and calcific tendinitis Post-op findings: See postoperative diagnosis Procedure done: Right shoulder open rotator cuff repair using 0 Ethibond with acromioplasty, distal clavicle resection, excision of calcific bursitis, and debridement of bursa Implants: None Specimens removed/disposition: None Pathology: None Surgeon: Vianney Berman MD Metallurgical Engineering Technician: Faith Santana, nurse practitioner who services were required for positioning, retraction, closure, and repair of the rotator cuff. Anesthesia: General (Intubated, ASA 3, with preoperative interscalene block) Estimated blood loss (mL): 10 IV fluids (mL): 1,000 Urine output (mL): 0 (No Phelan) Complications: None Findings: Rotator cuff tear, abrasion type, vertical in nature, in the area of calcific bursitis and impingement. Very significant impingement. Expanded distal clavicle with complete obliteration of joint space. Severe degenerative osteoarthritis in this area. Condition: stable Disposition: PACU Brief History: This 74-year-old woman presented to the office with severe right shoulder pain. Previously, in July of this year, the patient underwent left rotator cuff repair with acromioplasty, distal clavicle resection, and bursectomy. She has tolerated this well and recovered nicely. She continues to have significant pain in the right shoulder which causes her difficulties with her activities of daily living. She had an MRI demonstrating fracture of the distal clavicle felt to possibly be old, advanced osteoarthritis of the acromioclavicular joint with synovial thickening. Tendinopathy with calcific tendinitis but no high-grade tear. Intact biceps tendon. After discussion of these findings, the patient wished to proceed with open rotator cuff repair with distal clavicle resection, acromioplasty, and excision of calcific tendinitis. Rotator cuff repair if needed. Consents were signed in the office. On the morning of surgery, the patient was given further opportunity to have questions asked and answered. Procedure: The patient was brought to the operating theater and underwent general intubated anesthesia, ASA 3 with supplemental interscalene block. The patient was placed in a beachchair position and subsequently the right upper extremity was prepped and draped in the usual fashion utilizing DuraPrep. The arm was draped free. A surgical pause was performed prior to commencement of the surgical procedure. At the time of the surgical pause, we confirmed the site and side of surgery as well as administration of appropriate preoperative antibiotics Ancef 2 g which was well-tolerated. MRI was also reviewed at that time. Following the surgical pause, an incision was made at approximately the level of the acromioclavicular joint extending across the anterolateral corner of the acromion and distally as necessary. Care was taken to avoid injury to the axillary nerve by limiting the distal extent of the incision. Dissection continued through skin and soft tissues using a scalpel. Hemostasis was obtained using electrocautery. Soft tissues were elevated off the acromion and the acromioclavicular joint. The acromioclavicular joint was exposed. A saw was then used to resect the distal clavicle without difficulty. There was significant degenerative change and expansion of the distal clavicle. The undersurface of the clavicle was palpated and was slightly further debrided. A power rasp was used to further smooth the area. When this was felt to be adequately resected, the wound was irrigated. An acromioplasty was then accomplished using a combination of a saw and a power rasp. With this, we were able to remove compression caused by the acromion. The rotator cuff was then evaluated to look for tears. There was noted to be a large tear involving the supraspinatus tendon in the area of the impingement from the acromion and acromioclavicular joint. The tear was obviously an abrasion type of tear. It primarily was vertical. It needed to be freshened using a scalpel. It was able to be primarily repaired using 0 Ethibond and the area was quite smooth following the repair. The shoulder was then placed through full range of motion and reevaluated for any further evidence of tear. Finding none, attention was directed to closure. The wound was irrigated and closure was accomplished with 0 Vicryl in the capsular tissues overlying the acromioclavicular joint area as well as over the acromion and down into the deltoid muscle. 3-0 Monocryl was used to close the subcutaneous tissues followed by 4-0 Monocryl subcuticular closure. This was followed by Dermabond, Steri-Strips, and OpSite. The patient was placed in a sling shot style sling and was returned to the recovery room in satisfactory condition. The patient will be discharged to home to follow-up in the office as scheduled. There were no complications and no specimens. Related Problem List Diagnoses 1. Nontraumatic incomplete tear of right rotator cuff: 2. Impingement of right shoulder: 3. Osteoarthritis of acromioclavicular joint: 4. Calcific tendinitis of right shoulder:
== END 2025-01-29 16:55 | disposition home or self-care (01) ==
PROVIDERS: PCP Family Medicine; Visit Provider Specialist
PROC: (CPT 23120; principal; 2025-01-29 12:50)
PROC: (CPT 23412; 2025-01-29 12:50)
DX: M75.41 Impingement syndrome of right shoulder (principal); M19.011 Primary osteoarthritis, right shoulder; I10 Essential (primary) hypertension; G47.33 Obstructive sleep apnea (adult) (pediatric); Z99.89 Dependence on other enabling machines and devices
CPT/HCPCS: 23412; 23120; 23130; J0131; J0690; J1100; J2250; J2405; J2704; J3010; J3490; J7030; J9999

== ENCOUNTER → 2025-02-04 10:12 | Outpatient (BNVA) | payer MEDICARE, SELFPAY | PROVIDERS: PCP Family Medicine; Visit Provider Nurse Practitioner Family | DX: L57.8 Other skin changes due to chronic exposure to nonionizing radiation (principal); L81.4 Other melanin hyperpigmentation; D22.39 Melanocytic nevi of other parts of face; Z08 Encounter for follow-up examination after completed treatment for malignant neoplasm; Z85.828 Personal history of other malignant neoplasm of skin; L57.0 Actinic keratosis | CPT/HCPCS: 17000; 99213 ==

== ENCOUNTER → 2025-02-11 15:22 | Outpatient (BNVA) | payer MEDICARE, SELFPAY | PROVIDERS: PCP Family Medicine; Visit Provider Specialist | DX: Z98.890 Other specified postprocedural states (principal) | CPT/HCPCS: 99024 ==

== ENCOUNTER → 2025-02-25 13:23 | Outpatient (BNVA) | payer MEDICARE, SELFPAY | PROVIDERS: PCP Family Medicine; Visit Provider Specialist | DX: Z98.890 Other specified postprocedural states (principal) | CPT/HCPCS: 99024 ==

== ENCOUNTER 2025-02-28 11:02 | Outpatient (RCR) | payer MEDICARE, SELFPAY | END 2025-03-01 23:59 | disposition home or self-care (01) | LOC: SPT 11:02 | PROVIDERS: Visit Provider Specialist | DX: M75.111 Incomplete rotator cuff tear or rupture of right shoulder, not specified as traumatic (principal); M67.911 Unspecified disorder of synovium and tendon, right shoulder; M25.811 Other specified joint disorders, right shoulder; M75.31 Calcific tendinitis of right shoulder; M19.019 Primary osteoarthritis, unspecified shoulder | CPT/HCPCS: 97161 ==

== ENCOUNTER 2025-03-02 05:00 | Outpatient (RCR) | payer MEDICARE, SELFPAY | END 2025-03-31 23:59 | disposition home or self-care (01) | LOC: SPT 05:00 | PROVIDERS: Visit Provider Specialist | DX: M75.111 Incomplete rotator cuff tear or rupture of right shoulder, not specified as traumatic (principal) | CPT/HCPCS: 97110; 97530 ==

== ENCOUNTER → 2025-03-18 08:20 | Outpatient (BNVA) | payer MEDICARE, SELFPAY | PROVIDERS: PCP Family Medicine; Visit Provider Nurse Practitioner | DX: Z98.890 Other specified postprocedural states (principal) | CPT/HCPCS: 99024 ==

== ENCOUNTER 2025-04-01 05:00 | Outpatient (RCR) | payer MEDICARE, SELFPAY | END 2025-05-01 23:59 | disposition home or self-care (01) | LOC: SPT 05:00 | PROVIDERS: PCP Family Medicine; Visit Provider Specialist | DX: M75.111 Incomplete rotator cuff tear or rupture of right shoulder, not specified as traumatic (principal); M67.911 Unspecified disorder of synovium and tendon, right shoulder; M25.811 Other specified joint disorders, right shoulder; M75.31 Calcific tendinitis of right shoulder; M19.019 Primary osteoarthritis, unspecified shoulder | CPT/HCPCS: 97110 ==

== ENCOUNTER → 2025-04-12 08:05 | Outpatient (BNVA) | payer MEDICARE, SELFPAY | PROVIDERS: PCP Family Medicine; Visit Provider Nurse Practitioner | DX: M19.011 Primary osteoarthritis, right shoulder (principal); Z47.89 Encounter for other orthopedic aftercare | CPT/HCPCS: 20610; 99213; J1100; J2795; J3301; J9999 ==